=== PATIENT | female | born 1980 | race Caucasian/White ===

== ENCOUNTER 2019-11-02 08:49 | Emergency (ER) | payer OTHER, SELFPAY ==
[2019-11-02 09:10] VITALS: BP 151/89; PULSE 88; RESP 16; TEMP 36.5; O2SAT 98
--- NOTE | 2019-11-02 09:31 | ED.GENADULT ---
HPI - General Adult General Chief complaint: Wound/Laceration Stated complaint: Puncture wound on index finger Time Seen by Provider: 11/02/19 09:31 Source: patient Mode of arrival: ambulatory Limitations: no limitations History of Present Illness HPI narrative: 39-year-old female patient presents to the [facility] with complaints of a puncture wound to her left index finger. Patient states that happened last night. Patient states that she was using a wooden skewer to make chocolate covered strawberries and punctured her index finger with a wooden secure. Patient states that she was able to pull it out and that the score was intact when she did. Patient states that she did take some ibuprofen last night for pain but has not taken anything today. Patient states that the pain is worse today than it was yesterday. Patient states she is up-to-date on her tetanus and got her tetanus about a year ago from her primary doctor. Patient denies any fevers, chills. Patient states that it is painful to try and bend the finger. Patient states when the incident occurred yesterday she did rinse it off with water but did not scrub it and did not put any antibiotic ointment on it. Related Data Allergies Allergy/AdvReac Type Severity Reaction Status Date / Time No Known Allergies Allergy Unverified 01/17/19 11:59 Review of Systems Review of Systems: Narrative: CONSTITUTIONAL: Denies fever, chills, or sweats. EYES: Denies visual changes, redness, or discharge. ENT: Denies rhinorrhea, congestion, sore throat, or otalgia. CARDIOVASCULAR: Denies chest pain, palpitations, or edema. RESPIRATORY: Denies cough or dyspnea. GASTROINTESTINAL: Denies abdominal pain, nausea, vomiting, or diarrhea. GENITOURINARY: Denies dysuria or hematuria. SKIN: Denies rash or itching. Positive wound to left index finger MUSCULOSKELETAL: Denies back pain, joint pain, or myalgia. NEUROLOGIC: Denies headache, numbness, or weakness. PSYCHIATRIC: Denies anxiety or depression. [facility] Family History Family History Father Family history of diabetes mellitus in first degree relative Grandparent Family history of lung cancer Family history of malignant neoplasm of ovary Social History Social History Smoking status: Never smoker Comments At the time of my signature I agree with nursing past medical history, surgical, social, and family history. There is no relevant family history pertinent to the presenting complaint. Exam Narrative: Exam Narrative: GENERAL: Well-appearing, well-nourished, and in no acute distress. HEAD: Normocephalic, atraumatic. EYES: PERRLA and EOMI. ENT: Nares clear, no rhinorrhea or epistaxis. Mucous membranes moist. NECK: Supple. No lymphadenopathy CHEST: Clear to auscultation. No respiratory distress. HEART: Regular rate and rhythm. No murmur heard. Normal peripheral pulses. ABDOMEN: Soft, nontender, nondistended, normal active bowel sounds. EXTREMITIES: Normal range of motion. No edema. SKIN: Warm, dry, no rash. Patient has small puncture wound noted to the left index finger on the palm side right over the PIP joint. There is slight swelling noted at the base of the left index finger. There is no surrounding erythema, warmth. No discharge coming from the area. Patient states she is able to bend the finger but it is painful. NEURO: No focal deficits. Alert and oriented x3. Course Vital Signs Vital signs: Vital Signs Temperature 36.5 C 11/02/19 09:10 Pulse Rate 88 11/02/19 09:10 Respiratory Rate 16 11/02/19 09:10 Blood Pressure 151/89 H 11/02/19 09:10 Pulse Oximetry 98 11/02/19 09:10 Temperature 36.5 C 11/02/19 09:10 Pulse Rate 88 11/02/19 09:10 Respiratory Rate 16 11/02/19 09:10 Blood Pressure 151/89 H 11/02/19 09:10 Pulse Oximetry 98 11/02/19 09:10 Vital signs reviewed. The patient has been
== END 2019-11-02 09:51 | disposition home or self-care (01) ==
PROVIDERS: Emergency Provider Nurse Practitioner Family; PCP Registered Nurse
DX: S61.231A Puncture wound without foreign body of left index finger without damage to nail, initial encounter (principal); W27.4XXA Contact with kitchen utensil, initial encounter
CPT/HCPCS: 99213; G0463

== ENCOUNTER 2020-05-20 23:10 | Emergency (ER) | payer OTHER, SELFPAY ==
--- NOTE | ~2020-05-20 | XR_ITS ---
EXAMINATION: XR knee LT 3V DATE: 05/21/2020 01:04 INDICATION: Left knee pain TECHNIQUE: Three views of the left knee were obtained. COMPARISON: None. FINDINGS: Alignment is normal. No fracture or osteochondral lesion. Joint spaces are normal with no e rosions. No joint effusion/synovitis. Soft tissues are unremarkable. IMPRESSION: 1. No acute osseous abnormality. Reviewed, dictated and finalized at location [facility].
[2020-05-21 00:15] VITALS: BP 119/74; PULSE 93; RESP 17; TEMP 36.5; O2SAT 95
--- NOTE | 2020-05-21 01:41 | ED.EXTPRO ---
HPI - Extremity Problem General Chief complaint: Extremity Problem,Nontraumatic Stated complaint: left knee pain with swelling Time Seen by Provider: 05/21/20 00:52 Source: patient Mode of arrival: ambulatory Limitations: no limitations History of Present Illness HPI Narrative: This patient is a 40 year old female who presents for evaluation left knee pain.She reports she developed left medial knee pain 4 days ago. She states initially her pain appeared to be improving. Over the past couple of days, she is having worsening pain . Her pain is worse with bearing weight. She has not taken anything for pain in 2 days. She denies any trauma but she states she is on her feet constantly for work. She has no leg swelling, calf pain or sob. Related Data Allergies Allergy/AdvReac Type Severity Reaction Status Date / Time No Known Allergies Allergy Unverified 05/21/20 00:14 Review of Systems Review of Systems: All systems reviewed & are unremarkable except as noted in HPI and below PMFSH Past Medical History Medical History (Updated 05/21/20 @ 03:08 by Aurea Landa MD) Patient denies medical problems Surgical History Surgical History (Updated 05/21/20 @ 03:05 by Aurea Landa MD) Hx of cholecystectomy Social History Social History Smoking status: Never smoker Gender identity (if verbalized by the patient): Female Exam Const: General: alert Nutritional Appearance: obese Orientation/consciousness: patient oriented x3 HENMT: Head: normocephalic and atraumatic Face and sinus: face symmetric Eyes: EOM: EOMs intact bilaterally Skin: General skin exam: normal color Rashes: no rashes Neuro: General: patient oriented x3 and moves all extremities Extrem: General: full ROM and capillary refill normal Left lower extremity: knee Details: tenderness (medial anterior knee) and other (no increased warmth, no erythema, no calf tenderness) Course Vital Signs Vital signs: Vital Signs Temperature 97.7 F 05/21/20 00:15 Pulse Rate 93 05/21/20 00:15 Respiratory Rate 17 05/21/20 00:15 Blood Pressure 119/74 05/21/20 00:15 Pulse Oximetry 95 05/21/20 00:15 Temperature 97.7 F 05/21/20 00:15 Pulse Rate 77 05/21/20 03:15 Respiratory Rate 17 05/21/20 03:15 Blood Pressure 119/74 05/21/20 00:15 Pulse Oximetry 98 05/21/20 03:15 MDM - Extremity (Nontraumatic) Imaging Data Attestation: I personally reviewed and interpreted this imaging study as follows: My impression: left knee xray - no fracture Discharge Plan Discharge Clinical Impression: Arthralgia of knee, left Patient Disposition: Home, Self-Care Condition: Stable Instructions: Knee Pain (ED), Arthralgia (ED) Additional Instructions: Today you were evaluated for knee pain that is likely due to inflammation. Wear a knee brace for comfort and take NSAIDs for your pain. Prescriptions: New naproxen 500 mg tablet 500 mg PO BID PRN (Reason: pain) Qty: 14 RF: 0 tramadol 50 mg tablet 50 mg PO Q6H PRN (Reason: pain) Qty: 6 RF: 0 Follow-up/Referrals: Camryn,MICHAEL Ahn [Primary Care Provider] - Stand Alone Forms: Work/School Release IP Discharge Date/Time: 05/21/20 03:15
[2020-05-21] MEDS: KETOROLAC (*BKC) 60 MG/2 ML VIAL IM (02:13)
--- NOTE | 2020-05-21 02:14 | PC.NURSE ---
abigail wrap applied to L knee at this time.
[2020-05-21 03:15] VITALS: PULSE 77; RESP 17; O2SAT 98
== END 2020-05-21 03:15 | disposition home or self-care (01) ==
PROVIDERS: Emergency Provider General Practice; PCP Registered Nurse
DX: M25.562 Pain in left knee (principal)
CPT/HCPCS: 73562; 96372; 99283; J1885

== ENCOUNTER 2020-05-24 15:57 | Observation (INO) | payer OTHER, SELFPAY ==
--- NOTE | ~2020-05-24 | CT_ITS ---
EXAMINATION: CT abdomen pelvis w con DATE: 05/24/2020 18:02 INDICATION: Right lower quadrant abdominal pain TECHNIQUE: Computed tomography (CT) of the abdomen and pelvis was performed with 100 cc Omnipaque 350 intravenous contrast. Automated exposure control and iterative reconstruction technique were employe d. Exam dose: 1285.99 mGy-cm total exam DLP. COMPARISON: 10/07/2019 CT abdomen pelvis FINDINGS: The lung bases are clear of infiltrate or consolidation. Normal heart size. No pericardial or pleural effusion. Status post cholecystectomy. The liver, spleen, pancreas, and adrenal glands and kidneys are unremark able. No bile duct or pancreatic duct dilatation. Normal caliber of the abdominal aorta. No intraperitoneal or retroperitoneal or pelvic mass lesion or adenopathy or ascites. The uterus is absent. The urinary bladder and ovaries are unremarkable. Normal appendix. No bowel obstruction, bowel wall thickening, pneumatosis or intraperitoneal free air . Normal caliber of the abdominal aorta. No intraperitoneal or retroperitoneal or pelvic mass lesion or adenopathy or ascites. There is severe degenerative disc disease at L5-S1. 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 IMPRESSION: Status post cholecystectomy Status post hysterectomy Normal appendix Reviewed, dictated and finalized at [facility]. Reviewed, dictated and finalized at location [facility].
[2020-05-24 16:10] VITALS: BP 164/93; PULSE 101; RESP 18; TEMP 36.6; O2SAT 100
[2020-05-24 16:23] LABS: Basophils Absolute Auto 0.1 K/mm3 (0.0-0.1); Basophils Percent Auto 0.4 % (0.2-1.2); Eosinophils Absolute Auto 0.2 K/mm3 (0-0.3); Eosinophils Percent Auto 0.9 % (0-4.4); Hematocrit 42.6 % (37.0-47.0); Hemoglobin 13.8 g/dL (12.0-15.0); Immature Granulocyte Percent A 0.5 % (0-0.5); Lymphocytes Absolute Auto 2.51 K/mm3 (0.9-3.2); Lymphocytes Percent Auto 13.5 % (18.3-44.2); Mean Corpuscular HGB Conc 32.4 g/dl (32-36); Mean Corpuscular Hemoglobin 31.1 pg (26-34); Mean Corpuscular Volume 95.9 fl (80-100); Mean Platelet Volume 9.3 fl (7.4-10.4); Monocytes Absolute Auto 1.6 K/mm3 (0.1-0.6); Monocytes Percent Auto 8.3 % (2.6-8.5); Neutrophils Absolute Auto 14.2 K/mm3 (1.3-6.7); Neutrophils Percent Auto 76.4 % (45.5-73.1); Platelet Count Result 274 k/mm3 (150-375); Red Blood Count 4.44 M/mm3 (4.2-5.4); Red Cell Distribution Width 14.4 % (11.5-14.5); White Blood Count 18.6 K/mm3 (4.5-10.0)
[2020-05-24 16:35] LABS: Alanine Aminotransferase 24 U/L (4-35); Albumin Level 4.1 g/dL (3.5-5.1); Alkaline Phosphatase 68 U/L (38-126); Anion Gap 6 mmol/L (8-16); Aspartate Amino Transferase 26 U/L (14-36); Bilirubin,Total 0.4 mg/dL (0.2-1.3); Blood Urea Nitrogen 9 mg/dL (7-17); Calcium 9.4 mg/dL (8.4-10.2); Carbon Dioxide 28 mmol/L (22-30); Chloride 102 mmol/L (98-107); Estimated CRCL calculation 93 ml/min; Estimated Glomerular Filt Rate > 60; Glucose 104 mg/dL (65-105); Lipase 124 U/L (23-300); Sodium 136 mmol/L (137-145)
--- NOTE | 2020-05-24 16:42 | ED.ABDPAIN ---
HPI - Abdominal Pain General Chief Complaint: Abdominal Pain Stated Complaint: abdominal pain Time Seen by Provider: 05/24/20 16:42 Source: patient Mode of arrival: ambulatory Limitations: no limitations History of Present Illness HPI narrative: Patient is a 40-year-old female with a history of partial hysterectomy, section, cholecystectomy who presents for evaluation of diffuse abdominal pain. Patient reports pain over the past day which is constant in nature, sharp in nature throughout the abdomen. Patient states pain originates in the middle of the abdomen. Patient had one associated episode of nausea with emesis today. No fever or chills. No diarrhea, patient does report some constipation and straining with bowel movement. No recent food indiscretions. Related Data Allergies Allergy/AdvReac Type Severity Reaction Status Date / Time No Known Allergies Allergy Unverified 05/21/20 00:14 Review of Systems Review of Systems: Narrative: CONSTITUTIONAL: Denies fever CARDIOVASCULAR: Denies chest pain RESPIRATORY: Denies cough or dyspnea. GASTROINTESTINAL: Reports abdominal pain, nausea, vomiting SKIN: Denies rash MUSCULOSKELETAL: Denies back pain NEUROLOGIC: Denies headache PMFSH Past Medical History Medical History (Updated 05/24/20 @ 19:45 by Joana Flores MD) Patient denies medical problems Surgical History Surgical History H/O section H/O: hysterectomy Hx of cholecystectomy Social History Social History Smoking status: Never smoker Gender identity (if verbalized by the patient): Female Exam Narrative: Exam Narrative: GENERAL: Awake, alert, conversant HEAD: Normocephalic, atraumatic. EYES: PERRLA and EOMI. ENT: Nares clear, no rhinorrhea or epistaxis. Mucous membranes moist. NECK: Supple. CHEST: No respiratory distress, breathing even and non labored HEART: Regular rate, sinus rhythm ABDOMEN:Non distended, tender to palpation throughout abdomen, periumbilical abdominal pain, focal left upper quadrant, right lower quadrant, left lower quadrant, positive guarding, nonrigid EXTREMITIES: Normal range of motion. No edema. SKIN: Warm, dry, no rash. NEURO:No focal deficits. Alert and oriented x3 Course Vital Signs Vital signs: Vital Signs Temperature 36.6 C 05/24/20 16:10 Pulse Rate 101 H 05/24/20 16:10 Respiratory Rate 18 05/24/20 16:10 Blood Pressure 164/93 H 05/24/20 16:10 Pulse Oximetry 100 05/24/20 16:10 Temperature 36.6 C 05/24/20 16:10 Pulse Rate 93 05/24/20 19:37 Respiratory Rate 16 05/24/20 19:37 Blood Pressure 154/77 H 05/24/20 19:37 Pulse Oximetry 99 05/24/20 19:37 MDM - Abdominal Pain MDM Narrative Medical decision making narrative: Patient presented for evaluation of abdominal pain. At the time of assessment, ABCs are intact, patient is mildly tachycardic, the time of my assessment this has resolved. Laboratory results are notable for leukocytosis that is quite prounounced. Pt will meet SIRS criteria, and will add lactic and blood cx for her. No transaminitis. No electrolyte derangement or acute kidney injury. No elevation in lipase. Urine is not consistent with a urinary tract infection. CT scan does not really show any acute intra-abdominal findings. Patient was reassessed and continues to have severe pain with guarding on exam. SHe is not a frequent flier for intractable abd pain, nausea or vomiting based on chart review. I do not feel that patient has any surgical pathology especially based on imaging study. Shared decision making and patient offered discharge home versus to be observed here overnight to be kept n.p.o. with supportive therapy for pain with repeat serial abdominal exams and additional imaging if necessary. At this time, unknown etiology of her pain. Spoke with hospitalist regarding patient, we will do
[2020-05-24] MEDS: SODIUM CHLORIDE 0.9% IV 1,000 ML 999 ML IV CONT (17:41)
[2020-05-24] MEDS: ONDANSETRON INJ 4 MG/2 ML VIAL IV PUSH (17:43)
[2020-05-24] MEDS: MORPHINE SULFATE 4 MG/ML INJ IV PUSH (17:43)
[2020-05-24 18:00] LABS: Add Urine Microscopic? YES; Amorphous Sediment Urine Few; Appearance Urine Cloudy (Clear); Bacteria Urine Trace /hpf; Bilirubin Urine Negative (Negative); Blood Urine Negative (Negative); Color Urine Yellow (Yellow); Glucose Urine UA Negative (Negative); Ketones Urine Negative (Negative); Leukocyte Esterase Ur Negative LEU/UL (Negative); Mucus Urine Rare /lpf; Nitrate Urine Negative (Negative); Protein Urine Negative (Negative); RBC Urine 0-2 /hpf (0-2); Specific Grav Ur 1.015 (1.001-1.035); Squamous Epithelial Cell Urine Many /hpf (Few); Urobilinogen Urine Negative mg/dL (<2.0); WBC Urine 0-3 /hpf
[2020-05-24 19:06] VITALS: BP 135/83; PULSE 94; RESP 20; O2SAT 100
[2020-05-24 19:37] VITALS: BP 154/77; PULSE 93; RESP 16; O2SAT 99
--- NOTE | 2020-05-24 19:41 | PC.NURSE ---
nurse before me mistakenly dispoed and departed pt, registration put patient back on board.
[2020-05-24 20:03] VITALS: BP 149/78; PULSE 90; RESP 18; O2SAT 99
[2020-05-24 20:30] VITALS: BP 143/73; PULSE 76; RESP 20; TEMP 36.2; O2SAT 97; BMI 36.1
[2020-05-24 20:30] LABS: Lactic Acid Reflex 1.5 mmol/L (0.7-2.1)
--- NOTE | 2020-05-24 20:54 | ADMGEN ---
This patient, Genna Gonzalez, was admitted to [facility] Surg Room 302-01. Patient/family oriented to hospital policies and general routines including ID bracelet, bed and alarms, visiting hours, pain management, procedures, bathroom and other care routines, personal items, smoking policy, room service/diet, and visiting hours. Valuables list has been completed. Information on how to activate the Rapid Response Team has been discussed. Patient/Family are encouraged to report perceived risks to care and to ask questions if they do not understand what they are told or what they should do.
[2020-05-24] MEDS: SODIUM CHLORIDE 0.9% IV 1,000 ML 125 ML IV CONT (21:29)
[2020-05-24] MEDS: FAMOTIDINE 20 MG/2 ML VIAL IV PUSH (21:30)
[2020-05-24 22:00] VITALS: BP 141/81; PULSE 71; RESP 20; TEMP 36.2; O2SAT 98
[2020-05-24] MEDS: DICYCLOMINE HCL INJ 20 MG/2 ML VIAL IM (22:24)
--- NOTE | 2020-05-25 04:11 | PM.IMHP ---
H&P: HPI History of Present Illness Date/Time: 05/25/20 06:20 Chief complaint: Abdominal pain Narrative: Genna Gonzalez is a 40 year old female with a past medical history of prior cholecystectomy, hysterectomy without oophorectomy, and who presented to the ER for diffuse abdominal pain.The patient reports that on Monday she noticed some lower abdominal pain. She does have a history of ovarian cysts and thought that the pain may be related to that. However on Monday the pain was more diffuse and was more severe than her usual ovarian cyst type pain. The pain also moved from the lower abdomen and extended across the right side for abdomen and periumbilical region. The pain was constant and pressure-like. It was a 10/10 at its worst is currently a 7/10 in intensity. The pain is worse with palpation of her abdomen. She has been having normal bowel movements and denies any hematochezia, melena or mucousy stools. She has noticed increased gas. She reports that her abdomen feels tight. She reported that yesterday her pain was worse with eating. She has no desire to eat currently. She has not had any fevers or chills. She has never had pain like this before. She denies any recent ill contacts. She has had prior ER visits back in 2014 also for lower abdominal pain and leukocytosis each time she was found to have an ovarian cyst. However, today's imaging does not mention the patient's ovaries. The patient denies any vaginal discharge or odor. Review of Systems Review of Systems: Narrative: 12 systems were reviewed with pertinent positives and negatives per HPI. Except as documented in the HPI, all other systems were reviewed and are negative. [facility] Past Medical History Medical History (Updated 05/25/20 @ 08:21 by Janay Eng DO) Essential hypertension Obesity Ovarian cyst Surgical History Surgical History (Updated 05/25/20 @ 08:06 by Janay Eng DO) H/O section x3 H/O: hysterectomy without oophorectomy (hysterectomy performed due to dysfunctional uterine bleeding) History of tubal ligation Hx of cholecystectomy 2014 Family History Family History (Updated 05/25/20 @ 04:17 by Janay Eng DO) Father Diabetes mellitus Grandparent Lung cancer Ovarian cancer Social History Social History (Updated 05/25/20 @ 08:14 by CELINA Weaver Social History: the patient lives at home with her 3 children ages 15 16 and 17. She has 1 daughter and 2 sons. She lost 1 child at 19 weeks gestation. Two of her 3 children were premature. The patient has smoked 1 pack of cigarettes per day for 24 years. She started smoking at age 16. She drinks 3 or 4 alcoholic beverages 3 times a week. She smokes marijuana every couple of days. Smoking packs per day: 1 Smoking cigarettes per day: 20.0 Years smoked: 24 Smoking pack-years: 24.00 Smoking status: Current every day smoker Tobacco type: cigarettes Second hand tobacco smoke exposure: No Alcohol intake: current Drinks per week: 8 Substance use: current Substance use type: marijuana Gender identity (if verbalized by the patient): Female Spiritual care concerns: No Meds Home Medications and Allergies Home Medications Medication Instructions Recorded Confirmed Type No Home Medications 05/24/20 05/24/20 History Allergies Allergy/AdvReac Type Severity Reaction Status Date / Time No Known Allergies Allergy Unverified 05/21/20 00:14 Vital Signs Vital Signs - 24 hr 05/24/20 16:10 05/24/20 19:06 05/24/20 19:37 Temperature 97.8 F Pulse Rate 101 H 94 93 Respiratory Rate 18 20 16 Blood Pressure 164/93 H 135/83 154/77 H Pulse Oximetry 100 100 99 05/24/20 20:03 05/24/20 20:30 05/24/20 22:00 Temperature 97.2 F L 97.1 F L Pulse Rate 90 76 71 Respiratory Rate 18 20 20 Blood Pressure 149/78 H 143/73 H 141/81 H Pulse Oximetry 99 97 98 Exam Narrative: Exam Narrative: [place]
[2020-05-25] MEDS: DICYCLOMINE HCL INJ 20 MG/2 ML VIAL IM (05:57)
[2020-05-25 06:00] VITALS: BP 133/87; PULSE 57; RESP 20; TEMP 36.2; O2SAT 97
[2020-05-25] MEDS: SODIUM CHLORIDE 0.9% IV 1,000 ML 125 ML IV CONT (07:17)
[2020-05-25 08:24] LABS: Hematocrit 36.9 % (37.0-47.0); Hemoglobin 11.8 g/dL (12.0-15.0); Mean Corpuscular Hemoglobin 31.4 pg (26-34); Mean Corpuscular Volume 98.1 fl (80-100); Mean Platelet Volume 9.5 fl (7.4-10.4); Platelet Count Result 220 k/mm3 (150-375); Red Blood Count 3.76 M/mm3 (4.2-5.4); Red Cell Distribution Width 14.4 % (11.5-14.5); White Blood Count 12.6 K/mm3 (4.5-10.0)
[2020-05-25] MEDS: ENOXAPARIN 40 MG/0.4 ML SYRINGE SUB-Q (08:38)
[2020-05-25] MEDS: FAMOTIDINE 20 MG/2 ML VIAL IV PUSH (08:39)
[2020-05-25] MEDS: NICOTINE (*PBKC) 21 MG PATCH 1 PATCH TRANSDERM (08:40)
[2020-05-25 08:49] LABS: Alanine Aminotransferase 16 U/L (4-35); Albumin Level 3.3 g/dL (3.5-5.1); Alkaline Phosphatase 58 U/L (38-126); Anion Gap 4 mmol/L (8-16); Aspartate Amino Transferase 20 U/L (14-36); Bilirubin,Total 0.6 mg/dL (0.2-1.3); Blood Urea Nitrogen 7 mg/dL (7-17); Calcium 7.9 mg/dL (8.4-10.2); Carbon Dioxide 27 mmol/L (22-30); Chloride 105 mmol/L (98-107); Estimated CRCL calculation 108 ml/min; Estimated Glomerular Filt Rate > 60; Glucose 98 mg/dL (65-105); Potassium 3.6 mmol/L (3.4-5.0); Sodium 136 mmol/L (137-145)
--- NOTE | 2020-05-25 10:37 | PM.DS ---
DS: Admitting Diagnosis Admitting Diagnosis Admitting Diagnosis: Abdominal pain DS: Discharge Diagnosis Discharge Diagnosis (1) Abdominal pain: Qualifiers: Abdominal location: periumbilical Qualified Code(s): R10.33 - Periumbilical pain Code(s): R10.9 - Unspecified abdominal pain Status: Acute Assessment and Plan: uncertain etiology. The patient reports that her abdominal pain persists. She has Pepcid IV b.i.d., Zofran, IV Tylenol and dicyclomine as needed. The patient's abdomen is tender as discussed under exam but otherwise soft with no other associated symptoms. Repeat labs were ordered at 4:15 a.m. and at the time I was finishing this dictation after 8:00 a.m. labs have not yet been resulted. Given leukocytosis patient could possibly have an infection but no source of infection is noted on CT. will continue patient with NPO diet except for ice chips given her persistent pain. patient clinically symptoms are improved CT scan did not show any sign of infection her white counts are trending patient is feeling much comfortable will going discharge the patient to follow-up with primary care doctor (2) Leukocytosis: Qualifiers: Leukocytosis type: other Qualified Code(s): D72.828 - Other elevated white blood cell count Code(s): D72.829 - Elevated white blood cell count, unspecified Status: Acute Assessment and Plan: No definitive source of infection has been identified. Will hold off on antibiotic therapy at this time. (3) Tobacco abuse disorder: Code(s): Z72.0 - Tobacco use Status: Acute Assessment and Plan: The patient is not interested in tobacco cessation education. A nicotine patch has been ordered. DS: Summary Hospital Course Reason for hospitalization: Chief complaint: Abdominal pain Narrative: Genna Gonzalez is a 40 year old female with a past medical history of prior cholecystectomy, hysterectomy without oophorectomy, and who presented to the ER for diffuse abdominal pain.The patient reports that on Monday she noticed some lower abdominal pain. She does have a history of ovarian cysts and thought that the pain may be related to that. However on Monday the pain was more diffuse and was more severe than her usual ovarian cyst type pain. The pain also moved from the lower abdomen and extended across the right side for abdomen and periumbilical region. The pain was constant and pressure-like. It was a 10/10 at its worst is currently a 7/10 in intensity. The pain is worse with palpation of her abdomen. She has been having normal bowel movements and denies any hematochezia, melena or mucousy stools. She has noticed increased gas. She reports that her abdomen feels tight. She reported that yesterday her pain was worse with eating. She has no desire to eat currently. She has not had any fevers or chills. She has never had pain like this before. She denies any recent ill contacts. She has had prior ER visits back in 2014 also for lower abdominal pain and leukocytosis each time she was found to have an ovarian cyst. However, today's imaging does not mention the patient's ovaries. The patient denies any vaginal discharge or odor. Hospital Course: Patient pain has improved was able to jump three times without any pain, her work up so far diagnostic, patient does not want to stay one more day for obervation in the hospital, will discharge home today and with instruction that if her pain redevelop, to go to nearest ER. Patient to follow up with her primary care provider as soon as possible. Status at Discharge Functional status at discharge: independent ambulation Overall status at discharge: patient is back to baseline Time Spent with Patient Time attestation: Total time spent providing and/or coordinating discharge services: Time spent: Less than 30 minutes Exam Const: General: comfortable and no ac
[2020-05-25 14:00] VITALS: BP 136/87; PULSE 73; RESP 14; TEMP 36.4; O2SAT 97
== END 2020-05-25 13:50 | disposition home or self-care (01) ==
LOC: ANHED 19:44 → ANH3MEDSUR 21:44
PROVIDERS: Family Medicine; Admitting Provider Internal Medicine; Emergency Provider Emergency Medicine; PCP Registered Nurse; Visit Provider Family Medicine
DX: R10.9 Unspecified abdominal pain (principal); D72.829 Elevated white blood cell count, unspecified; F17.210 Nicotine dependence, cigarettes, uncomplicated; F12.90 Cannabis use, unspecified, uncomplicated
CPT/HCPCS: 36415; 74177; 80053; 81001; 83605; 83690; 85025; 85027; 87040; 96361; 96365; 96372; 96375; 96376; 99285; A9270; G0378; G0379; J0131; J0500; J1650; J2270; J2405; J7030; Q9967

== ENCOUNTER 2021-03-14 11:41 | Emergency (ER) | payer OTHER, SELFPAY ==
[2021-03-14 11:50] VITALS: BP 145/94; PULSE 93; RESP 16; TEMP 37; O2SAT 99
[2021-03-14 12:01] VITALS: BP 145/94; PULSE 93; RESP 16; TEMP 37; O2SAT 99
--- NOTE | 2021-03-14 12:02 | ED.GENADULT ---
HPI - General Adult General Chief complaint: Ear Stated complaint: Ear Pain Time Seen by Provider: 03/14/21 11:43 Source: patient Mode of arrival: ambulatory Limitations: no limitations History of Present Illness HPI narrative: Patient presents for evaluation of bilateral ear pain. States that pain has been present in the right ear for about 2 weeks. Pain has progressively worsened. She now feels like her right ear is clogged with some hearing loss. She has a history of recurrent ear infections and current symptoms are consistent with those previously experienced with ear infections. She has been seen by ENT in the past for recurrent ear infections. Although she has not required treatment in the last year or so. She reports a clear crusted drainage from both ear canals. Denies any tinnitus, sore throat, fever, chills. Related Data Home Medications Medication Instructions Recorded Confirmed ibuprofen 600 mg PO DIRECTED 03/14/21 03/14/21 tramadol 50 mg PO DIRECTED 03/14/21 03/14/21 Allergies Allergy/AdvReac Type Severity Reaction Status Date / Time No Known Allergies Allergy Verified 03/14/21 12:09 Review of Systems Review of Systems: Narrative: CONSTITUTIONAL: Denies fever, chills, or sweats. EYES: Denies visual changes, redness, or discharge. ENT: Reports bilateral ear pain, decreased hearing in the right ear and crusted drainage in both ears. Denies rhinorrhea, congestion, sore throat. CARDIOVASCULAR: Denies chest pain, palpitations, or edema. RESPIRATORY: Denies cough or dyspnea. GASTROINTESTINAL: Denies abdominal pain, nausea, vomiting, or diarrhea. GENITOURINARY: Denies dysuria or hematuria. SKIN: Denies rash or itching. MUSCULOSKELETAL: Denies back pain, joint pain, or myalgia. NEUROLOGIC: Denies headache, numbness, dizziness, or weakness. PSYCHIATRIC: Denies anxiety or depression. [facility] Past Medical History Medical History Hypertension Surgical History Surgical History History of delivery History of cholecystectomy History of hysterectomy Family History Family History Father Heart disease Mother CHF (congestive heart failure) COPD (chronic obstructive pulmonary disease) Social History Social History Smoking packs per day: 0.5 Smoking cigarettes per day: 10.0 Smoking status: Current every day smoker Tobacco type: cigarettes Alcohol intake: current Alcohol use details: social Substance use: current Substance use type: marijuana Additional living arrangements comments: Lives with boyfriend Gender identity (if verbalized by the patient): Female Spiritual care concerns: No Exam Narrative: Exam Narrative: GENERAL: Well-appearing, well-nourished, and in no acute distress. HEAD: Normocephalic, atraumatic. EYES: PERRLA and EOMI. ENT: Nares clear, no rhinorrhea or epistaxis. Mucous membranes moist. Oropharynx without tonsillar hypertrophy exudate or other lesions. Bilateral TMs erythema and clouding with middle ear fluid present. There is dried serous fluid noted in both ear canals NECK: Supple. No adenopathy or masses. No carotid bruits or JVD CHEST: Clear to auscultation. No respiratory distress. No wheezes rales or rhonchi HEART: Regular rate and rhythm. No murmur heard. Normal peripheral pulses. ABDOMEN: Soft, nontender, nondistended, normal active bowel sounds. EXTREMITIES: Normal range of motion. No edema. SKIN: Warm, dry, no rash. NEURO: No focal deficits. Alert and oriented x3. PSYCH: Normal mood and affect. Course Course Emergency Course: This is a 40-year-old female who presents with complaints of bilateral ear pain. She has history of recurrent ear infection and has required otic ear preparation
== END 2021-03-14 12:17 | disposition home or self-care (01) ==
PROVIDERS: Emergency Provider Nurse Practitioner
DX: H66.93 Otitis media, unspecified, bilateral (principal); H60.393 Other infective otitis externa, bilateral
CPT/HCPCS: 99203; G0463

== ENCOUNTER 2021-12-05 11:33 | Emergency (ER) | payer OTHER, SELFPAY ==
--- NOTE | ~2021-12-05 | XR_ITS ---
XR hand LT min 3V 12/05/2021 12:05 INDICATION: Left hand pain PROCEDURE: 3 views left hand COMPARISON: 08/08/2007 and 08/25/2013 FINDINGS: Fracture, dislocation or subluxation is not identified. The soft tissues appear within norm al limits. No foreign bodies are identified. IMPRESSION: 1: NO ACUTE BONE OR JOINT ABNORMALITY IDENTIFIED. Reviewed, dictated and finalized at location A.
--- NOTE | 2021-12-05 11:43 | ED.UPPEXIN ---
HPI - Extremity Injury (Upper) General Chief Complaint: Extremity Injury, Upper Stated Complaint: Finger and hand Pain Time Seen by Provider: 12/05/21 11:43 Source: patient Mode of arrival: ambulatory Limitations: no limitations History of Present Illness HPI narrative: 41-year-old female presents with pain to left index finger. Patient reports that yesterday she was putting on shoes at a shoe store and felt shooting pain from her left index finger into her hand. Since then has had swelling, decreased range of motion, pain with movement. Taking [id number] medications to treat pain. All systems reviewed and negative except as noted above. Related Data Home Medications Medication Instructions Recorded Confirmed No Home Medications 12/05/21 12/05/21 Allergies Allergy/AdvReac Type Severity Reaction Status Date / Time No Known Allergies Allergy Verified 12/05/21 12:03 Review of Systems Review of Systems: CONSTITUTIONAL: Denies fever, chills, or sweats. EYES: Denies visual changes, redness, or discharge. ENT: Denies rhinorrhea, congestion, sore throat, or otalgia. CARDIOVASCULAR: Denies chest pain, palpitations, or edema. RESPIRATORY: Denies cough or dyspnea. GASTROINTESTINAL: Denies abdominal pain, nausea, vomiting, or diarrhea. GENITOURINARY: Denies dysuria or hematuria. SKIN: Denies rash or itching. MUSCULOSKELETAL: Denies back pain, joint pain, or myalgia. Pain to left index finger. NEUROLOGIC: Denies headache, numbness, or weakness. PSYCHIATRIC: Denies anxiety or depression. All other systems reviewed are negative, except as documented in HPI. [facility] Past Medical History Medical History Hypertension Surgical History Surgical History History of delivery History of cholecystectomy History of hysterectomy Family History Family History Father Heart disease Mother CHF (congestive heart failure) COPD (chronic obstructive pulmonary disease) Social History Social History (System 08/19/21 @ 08:40 by Cary Medina) Social History: the patient lives at home with her 3 children ages 15 16 and 17. She has 1 daughter and 2 sons. She lost 1 child at 19 weeks gestation. Two of her 3 children were premature. The patient has smoked 1 pack of cigarettes per day for 24 years. She started smoking at age 16. She drinks 3 or 4 alcoholic beverages 3 times a week. She smokes marijuana every couple of days. Smoking packs per day: 1 Smoking cigarettes per day: 20.0 Years smoked: 24 Smoking pack-years: 24.00 Smoking status: Current every day smoker Tobacco type: cigarettes Second hand tobacco smoke exposure: No Alcohol intake: current Drinks per week: 8 Alcohol use details: social Substance use: current Substance use type: marijuana Additional living arrangements comments: Lives with boyfriend Gender identity (if verbalized by the patient): Female Spiritual care concerns: No Comments At time of signature, agree with nursing past medical, surgical, social and family history. There is no relevant family history pertinent to the presenting complaint. Exam Narrative: GENERAL: This is a well-nourished, well-developed patient, in no apparent distress. HEAD: normocephalic, atraumatic. EYES: PERRL. Sclera clear/white. Vision is grossly intact. EARS: External ears normal. NOSE: External nose normal. NECK: Neck supple, non-tender without lymphadenopathy, masses or thyromegaly. CARDIOVASCULAR: Regular rate RESPIRATORY: Clear to auscultation. SKIN: warm, Dry, intact with no suspicious lesions or rash, good texture and turgor. NEURO: awake, alert, and oriented to person, place and time. There were no obvious focal neurologic abnormalities. EXTREMITIES: Tenderness to proximal aspect left index finge
[2021-12-05 11:47] VITALS: BP 126/89; PULSE 85; RESP 16; TEMP 36.5; O2SAT 98
== END 2021-12-05 12:29 | disposition home or self-care (01) ==
PROVIDERS: Emergency Provider Nurse Practitioner Family; PCP Registered Nurse
DX: S63.611A Unspecified sprain of left index finger, initial encounter (principal); X58.XXXA Exposure to other specified factors, initial encounter; I10 Essential (primary) hypertension; F17.210 Nicotine dependence, cigarettes, uncomplicated
CPT/HCPCS: 29130; 73130; 99213; G0463

== ENCOUNTER 2022-02-03 17:43 | Emergency (ER) | payer OTHER, SELFPAY ==
[2022-02-03] VITALS (14 sets, daily range): BP systolic 118–126; BP diastolic 70–84; PULSE 78–95; RESP 14–23; TEMP 36.8; O2SAT 93–100
--- NOTE | ~2022-02-03 | XR_ITS ---
EXAMINATION: XR chest 2V DATE: 02/03/2022 18:07 INDICATION: Sternal chest tightness. TECHNIQUE: Frontal and lateral views of the chest were obtained. COMPARISON: Chest 2 views 01/17/2019, CT abdomen and pelvis 05/24/2020 FINDINGS: The chest demonstrates clear lungs without pneumonia, pleural effusion, or pneumothorax. Th e heart size is normal. IMPRESSION: 1. No acute cardiopulmonary disease. Reviewed, dictated and finalized at location A.
--- NOTE | 2022-02-03 17:46 | ECG_ITS ---
Measurements Intervals [place] Rate: 90 P: 37 PA: 142 QRS: 28 QRSD: 91 T: 9 QT: 367 QTc: 450 Interpretive Statements SINUS RHYTHM INCOMPLETE RIGHT BUNDLE BRANCH BLOCK BORDERLINE ST-T WAVE ABNORMALITY- INFERIOR LEADS BASELINE ARTIFACT- V4-V6 BORDERLINE ECG Electronically Signed On 02-03-2022 20:01:01 CDT by Jesus Kasper D.O.
--- NOTE | 2022-02-03 18:05 | ED.GENADULT ---
HPI - General Adult General Chief complaint: Chest Pain <BROCK Hancock Last Filed: 02/03/22 23:21> Stated complaint: CP <BROCK Hancock Last Filed: 02/03/22 23:21> Time Seen by Provider: 02/03/22 17:53 <BROCK Hancock Last Filed: 02/03/22 23:21> History of Present Illness HPI narrative: Patient is a 49-year-old healthy female here for evaluation of chest pain today. Patient describes the sensation as a tightness in the center of her chest, and she developed this about 3 hours ago. The pain came on while patient was at rest. The chest pain is since subsided without intervention. Patient states she was feeling unwell this morning, feeling lightheaded and just generally off . She went to the fire station, got an EKG and was told that her blood pressure was high. She left the fire station, went home, developed the chest pain, and decided to come in to be evaluated. Denies history of previous. She did use a THC edible this morning about 1 hour prior to her symptom onset. Denies shortness of breath, leg swelling, calf pain, recent travel, oral contraceptive use, nausea, diaphoresis. No new medications. <Martha Polanco PA-C - Last Filed: 02/03/22 23:21> Related Data Home medications: Home Medications Medication Instructions Recorded Confirmed No Home Medications 12/05/21 12/05/21 <Martha Polanco PA-C - Last Filed: 02/03/22 23:21> Allergies/adverse reactions: Allergies Allergy/AdvReac Type Severity Reaction Status Date / Time No Known Allergies Allergy Verified 12/05/21 12:03 <BROCK Hancock Last Filed: 02/03/22 23:21> Review of Systems Review of Systems: Gen: Reports lightheadedness. Denies fevers or chills Eyes: Denies eye pain or visual change ENT: Denies congestion Respiratory: Denies shortness of breath or cough CV: Reports chest pain GI: Denies abdominal pain nausea, emesis or diarrhea denies burning, urgency, frequency or hematuria Musculoskeletal: Denies back pain or muscle pain Neuro: Denies numbness, tingling, weakness or focal weakness Skin: Denies rash Except as documented, all other systems reviewed and negative <Martha Polanco PA-C - Last Filed: 02/03/22 23:21> All systems reviewed & are unremarkable except as noted in HPI and below <Martha Polanco PA-C - Last Filed: 02/03/22 23:21> [facility] Past Medical History Medical History: Medical History Essential hypertension Hypertension Obesity Ovarian cyst <Martha Polanco PA-C - Last Filed: 02/03/22 23:21> Surgical History Surgical History: Surgical History H/O section x3 H/O: hysterectomy without oophorectomy (hysterectomy performed due to dysfunctional uterine bleeding) History of delivery History of cholecystectomy History of hysterectomy History of tubal ligation Hx of cholecystectomy 2014 <Martha Polanco PA-C - Last Filed: 02/03/22 23:21> Family History Family History: Family History Father Heart disease Mother CHF (congestive heart failure) COPD (chronic obstructive pulmonary disease) <Martha Polanco PA-C - Last Filed: 02/03/22 23:21> Social History Social History: Social History (System 08/19/21 @ 08:40 by Cary Medina) Social History: the patient lives at home with her 3 children ages 15 16 and 17. She has 1 daughter and 2 sons. She lost 1 child at 19 weeks gestation. Two of her 3 children were premature. The patient has smoked 1 pack of cigarettes per day for 24 years. She started smoking at age 16. She drinks 3 or 4 alcoholic beverages 3 times a week. She smokes marijuana every couple of days. Smoking packs per day: 1 Smoking cigarettes pe
[2022-02-03 18:10] LABS: Basophils Absolute Auto 0.1 K/mm3 (0.0-0.1); Basophils Percent Auto 0.4 % (0.2-1.2); Eosinophils Absolute Auto 0.2 K/mm3 (0-0.3); Eosinophils Percent Auto 1.3 % (0-4.4); Hematocrit 40.1 % (37.0-47.0); Hemoglobin 12.6 g/dL (12.0-15.0); Immature Granulocyte Absolute 0.06 K/mm3 (0.00-0.031); Immature Granulocyte Percent A 0.5 % (0-0.5); Lymphocytes Absolute Auto 2.69 K/mm3 (0.9-3.2); Lymphocytes Percent Auto 21.1 % (18.3-44.2); Mean Corpuscular HGB Conc 31.4 g/dl (32-36); Mean Corpuscular Hemoglobin 30.9 pg (26-34); Mean Corpuscular Volume 98.3 fl (80-100); Mean Platelet Volume 9.2 fl (7.4-10.4); Monocytes Absolute Auto 1.1 K/mm3 (0.1-0.6); Monocytes Percent Auto 8.5 % (2.6-8.5); Neutrophils Absolute Auto 8.7 K/mm3 (1.3-6.7); Neutrophils Percent Auto 68.2 % (45.5-73.1); Platelet Count Result 257 k/mm3 (150-375); Red Blood Count 4.08 M/mm3 (4.2-5.4); Red Cell Distribution Width 13.7 % (11.5-14.5); White Blood Count 12.8 K/mm3 (4.5-10.0)
[2022-02-03 18:19] LABS: Partial Thromboplastin Time 24.7 SECONDS (22.3-36.8); Prothrombin Time 13.2 Seconds (11.1-14.7)
[2022-02-03 18:22] LABS: Alanine Aminotransferase 18 U/L (6-35); Alkaline Phosphatase 59 U/L (38-126); Anion Gap 5 mmol/L (8-16); Aspartate Amino Transferase 24 U/L (14-36); Bilirubin,Total 0.5 mg/dL (0.2-1.3); Blood Urea Nitrogen 9 mg/dL (7-17); Calcium 8.6 mg/dL (8.4-10.2); Carbon Dioxide 29 mmol/L (22-30); Chloride 102 mmol/L (98-107); Estimated Glomerular Filt Rate > 60; Glucose 92 mg/dL (65-110); Lipase 64 U/L (23-300); Potassium 3.6 mmol/L (3.4-5.0); Sodium 136 mmol/L (137-145)
[2022-02-03 18:34] LABS: Troponin I < 0.012 ng/mL (0.000-0.034)
[2022-02-03 18:56] LABS: D Dimer < 0.27 ug/mL (<0.48)
[2022-02-03 21:24] LABS: Troponin I < 0.012 ng/mL (0.000-0.034)
== END 2022-02-03 22:13 | disposition home or self-care (01) ==
PROVIDERS: Physician Assistant; Emergency Provider Emergency Medicine; PCP Registered Nurse
DX: R07.89 Other chest pain (principal); I10 Essential (primary) hypertension; E66.9 Obesity, unspecified; F17.210 Nicotine dependence, cigarettes, uncomplicated; I45.10 Unspecified right bundle-branch block; R94.31 Abnormal electrocardiogram [ECG] [EKG]
CPT/HCPCS: 36415; 71046; 80053; 81025; 83690; 84484; 85025; 85380; 85610; 85730; 93005; 99284

== ENCOUNTER 2022-10-12 15:23 | Emergency (ER) | payer OTHER, SELFPAY ==
--- NOTE | 2022-10-12 15:27 | ED.URI ---
HPI - URI/Sore Throat General Chief Complaint: Upper Respiratory Infection Stated Complaint: cold sx Time Seen by Provider: 10/12/22 15:35 Source: patient Mode of arrival: ambulatory Limitations: no limitations History of Present Illness HPI Narrative: Genna is a 42-year-old female patient presenting to the clinic today with complaints of sore throat, productive cough, congestion, body aches, and chills x2 days. She reports she is feeling better but she is needing a note to return to work. She denies any fever. She denies any known exposure to anybody with COVID, flu, or strep MD elicited complaint: sore throat and nasal congestion Related Data Home Medications Medication Instructions Recorded Confirmed lisinopril 20 mg tablet mg 10/12/22 Allergies Allergy/AdvReac Type Severity Reaction Status Date / Time No Known Allergies Allergy Verified 10/12/22 15:28 Review of Systems Review of Systems: Pertinent positives per HPI. Patient denies any fever, chills, rash, headache, visual changes, dizziness, shortness of breath, chest pain, palpitations, nausea, vomiting, diarrhea, constipation, abdominal pain, or any urinary issues. [facility] Past Medical History Medical History Essential hypertension Hypertension Obesity Ovarian cyst Surgical History Surgical History H/O section x3 H/O: hysterectomy without oophorectomy (hysterectomy performed due to dysfunctional uterine bleeding) History of delivery History of cholecystectomy History of hysterectomy History of tubal ligation Hx of cholecystectomy 2014 Family History Family History Father Heart disease Mother CHF (congestive heart failure) COPD (chronic obstructive pulmonary disease) Father Diabetes mellitus Grandparent Lung cancer Ovarian cancer Social History Social History Social History: the patient lives at home with her 3 children ages 15 16 and 17. She has 1 daughter and 2 sons. She lost 1 child at 19 weeks gestation. Two of her 3 children were premature. The patient has smoked 1 pack of cigarettes per day for 24 years. She started smoking at age 16. She drinks 3 or 4 alcoholic beverages 3 times a week. She smokes marijuana every couple of days. Smoking packs per day: 1 Smoking cigarettes per day: 20.0 Years smoked: 24 Smoking pack-years: 24.00 Smoking status: Current every day smoker Tobacco type: cigarettes Second hand tobacco smoke exposure: No Alcohol intake: current Drinks per week: 8 Alcohol use details: social Substance use: current Substance use type: marijuana Additional living arrangements comments: Lives with boyfriend Gender identity (if verbalized by the patient): Female Spiritual care concerns: No Comments At the time of my signature, I reviewed and agree with the nursing past medical, surgical, social, and family history. There is no relevant family history pertinent to the patient complaint. Exam Narrative: General: Well-developed, obese in no apparent distress Head: Normocephalic, atraumatic Eyes: Pupils equally round and reactive to light bilaterally, EOM intact, sclera and conjunctive clear, no discharge, lids normal Ears: TMs intact and clear, ear canals clear, no drainage, grossly hearing normal. Nose: Nares patent, clear nasal discharge, moderate inflammation, no sinus tenderness. Mouth: Oral pharynx without lesions or masses, good dentition, MMM. Oropharynx red, postnasal drip Neck: Supple, trachea midline, no enlargement of anterior or posterior cervical nodes, no thyroid masses or goiter palpable. Cardio: Regular rate and rhythm, s1 and s2 normal, no murmur appreciated. Resp: Clear to auscultation bilate
[2022-10-12 15:29] VITALS: BP 148/90; PULSE 99; RESP 18; TEMP 37.2; O2SAT 98
== END 2022-10-12 16:14 | disposition home or self-care (01) ==
PROVIDERS: Emergency Provider Nurse Practitioner Family; PCP Registered Nurse
DX: B34.9 Viral infection, unspecified (principal); J06.9 Acute upper respiratory infection, unspecified; Z20.822 Contact with and (suspected) exposure to COVID-19; F17.210 Nicotine dependence, cigarettes, uncomplicated; F12.90 Cannabis use, unspecified, uncomplicated; I10 Essential (primary) hypertension; E66.9 Obesity, unspecified; Z68.32 Body mass index [BMI] 32.0-32.9, adult
CPT/HCPCS: 87081; 87426; 87804; 87880; 99213; C9803; G0463

== ENCOUNTER 2022-11-15 23:46 | Emergency (ER) | payer OTHER, SELFPAY ==
[2022-11-15 23:47] VITALS: BP 173/97; PULSE 103; RESP 17; TEMP 36.7; O2SAT 97
--- NOTE | 2022-11-16 00:46 | ED.EYEPROB ---
HPI - Eye Problem General Chief complaint: Eye Problems Stated complaint: eye pain Time Seen by Provider: 11/16/22 00:34 Source: patient and RN notes reviewed Mode of arrival: ambulatory Limitations: no limitations History of Present Illness HPI Narrative: This is a 42 year old female who presents for evaluation of left eye redness. She developed left eye redness, irritation and discharge yesterday. She has noticed some dried discharge to her eye lids. She denies any trauma and she does not wear contacts. She denies sick contacts. Related Data Home Medications Medication Instructions Recorded Confirmed lisinopril 20 mg tablet mg 10/12/22 Allergies Allergy/AdvReac Type Severity Reaction Status Date / Time No Known Allergies Allergy Verified 10/12/22 15:28 Review of Systems Review of Systems: All systems reviewed & are unremarkable except as noted in HPI and below PMFSH Past Medical History Medical History Essential hypertension Hypertension Obesity Ovarian cyst Surgical History Surgical History H/O section x3 H/O: hysterectomy without oophorectomy (hysterectomy performed due to dysfunctional uterine bleeding) History of delivery History of cholecystectomy History of hysterectomy History of tubal ligation Hx of cholecystectomy 2014 Family History Family History Father Heart disease Mother CHF (congestive heart failure) COPD (chronic obstructive pulmonary disease) Father Diabetes mellitus Grandparent Lung cancer Ovarian cancer Social History Social History Social History: the patient lives at home with her 3 children ages 15 16 and 17. She has 1 daughter and 2 sons. She lost 1 child at 19 weeks gestation. Two of her 3 children were premature. The patient has smoked 1 pack of cigarettes per day for 24 years. She started smoking at age 16. She drinks 3 or 4 alcoholic beverages 3 times a week. She smokes marijuana every couple of days. Smoking packs per day: 1 Smoking cigarettes per day: 20.0 Years smoked: 24 Smoking pack-years: 24.00 Smoking status: Current every day smoker Tobacco type: cigarettes Second hand tobacco smoke exposure: No Alcohol intake: current Drinks per week: 8 Alcohol use details: social Substance use: current Substance use type: marijuana Additional living arrangements comments: Lives with boyfriend Gender identity (if verbalized by the patient): Female Spiritual care concerns: No Exam Const: General: no acute distress and alert Nutritional Appearance: well nourished Orientation/consciousness: patient oriented x3 HENMT: Head: normal to inspection Face and sinus: normal facial exam Eyes: Conjunctivae: conjunctival abnormality left conjunctival injection and discharge Pupils: Equal, round and reactive pupils present EOM: EOMs intact bilaterally Other: negative uptake, no foreign body Resp: Effort & Inspection: normal respiratory effort Skin: General skin exam: normal color Rashes: no rashes Wounds: no wounds Extrem: General: normal to inspection Psych: Mental Status: mental status grossly normal Course Reevaluation(s) Reevaluation #1: Patient will be treated for conjunctivitis. Date: 11/16/22 Time: 00:55 Vital Signs Vital signs: Vital Signs Temperature 98.1 F 11/15/22 23:47 Pulse Rate 103 H 11/15/22 23:47 Respiratory Rate 17 11/15/22 23:47 Blood Pressure 173/97 H 11/15/22 23:47 Pulse Oximetry 97 11/15/22 23:47 Oxygen Delivery Room Air 11/15/22 23:47 Temperature 98.1 F 11/15/22 23:47 Pulse Rate 103 H 11/15/22 23:47 Respiratory Rate 17 11/15/22 23:47 Blood Pressure 173/97 H 11/15/22 23:47 Pulse Oximetry 97 11/15/22 23:47 Oxyg
== END 2022-11-16 01:15 | disposition home or self-care (01) ==
LOC: ANHED 11-16 01:12
PROVIDERS: Emergency Provider General Practice; PCP Registered Nurse
DX: H10.32 Unspecified acute conjunctivitis, left eye (principal); F17.210 Nicotine dependence, cigarettes, uncomplicated; I10 Essential (primary) hypertension
CPT/HCPCS: 99283; A9270

== ENCOUNTER 2022-11-17 19:20 | Emergency (ER) | payer OTHER, SELFPAY ==
[2022-11-17 19:35] VITALS: BP 146/98; PULSE 101; RESP 16; TEMP 37; O2SAT 99
--- NOTE | 2022-11-17 19:35 | ED.EYEPROB ---
HPI - Eye Problem General Chief complaint: Eye Problems Stated complaint: cough Time Seen by Provider: 11/17/22 19:36 Source: patient, RN notes reviewed and old records reviewed Mode of arrival: ambulatory Limitations: no limitations History of Present Illness HPI Narrative: 42-year-old female presents to the [facility] with continued eye redness. Patient does report that she was seen in the ER and discharged early this morning. Use the eyedrops today and she is still not better. Had a work note that and today and needs 1 for tomorrow. Just discharged from the emergency room yesterday with eyedrops, told to follow-up with an eye doctor as well as remove eyelashes. Has not made a follow-up appointment or removed her eyelashes. Denies any blurry vision or change in vision. States the vision she has is current normally wears glasses, not contacts. Onset (ago): day(s) Related Data Home Medications Medication Instructions Recorded Confirmed lisinopril 20 mg tablet mg 10/12/22 Allergies Allergy/AdvReac Type Severity Reaction Status Date / Time No Known Allergies Allergy Verified 11/17/22 19:36 Review of Systems Review of Systems: All systems reviewed & are unremarkable except as noted in HPI and below Constitutional: Constitutional: Reports no additional constitutional complaints Eyes: Eyes: Reports as per HPI, Denies change in vision, Reports eye discharge, Reports irritation, Reports itchy eyes and Denies photophobia ENT: Reports system reviewed and no additional complaints, except as documented Cardiovascular: Cardiovascular: Reports no additional cardiovascular complaints, Denies chest pain and Denies dyspnea Respiratory: Respiratory: Reports no additional respiratory complaints, Denies chest congestion, Denies cough and Denies dyspnea Gastrointestinal: Gastrointestinal: Reports no additional gastrointestinal complaints, Denies abdominal pain, Denies nausea and Denies vomiting Musculoskeletal: Musculoskeletal: Reports no additional musculoskeletal complaints Integumentary/Breasts: Skin/Breast: Reports system reviewed and no additional complaints, except as docu Neurologic: Reports system reviewed and no additional complaints, except as documented Psychiatric: Psychiatric: Reports no additional psychiatric complaints Allergic/Immunologic: Allergic/Immunologic: Reports no additional allergic/immunologic complaints [facility] Past Medical History Medical History Essential hypertension Hypertension Obesity Ovarian cyst Surgical History Surgical History H/O section x3 H/O: hysterectomy without oophorectomy (hysterectomy performed due to dysfunctional uterine bleeding) History of delivery History of cholecystectomy History of hysterectomy History of tubal ligation Hx of cholecystectomy 2014 Family History Family History Father Heart disease Mother CHF (congestive heart failure) COPD (chronic obstructive pulmonary disease) Father Diabetes mellitus Grandparent Lung cancer Ovarian cancer Social History Social History Social History: the patient lives at home with her 3 children ages 15 16 and 17. She has 1 daughter and 2 sons. She lost 1 child at 19 weeks gestation. Two of her 3 children were premature. The patient has smoked 1 pack of cigarettes per day for 24 years. She started smoking at age 16. She drinks 3 or 4 alcoholic beverages 3 times a week. She smokes marijuana every couple of days. Smoking packs per day: 1 Smoking cigarettes per day: 20.0 Years smoked: 24 Smoking pack-years: 24.00 Smoking status: Current every day smoker Tobacco type: cigarettes Second hand tobacco smoke exposure: No Alcohol intake: current Drinks per week:
== END 2022-11-17 19:55 | disposition home or self-care (01) ==
PROVIDERS: Emergency Provider Nurse Practitioner
DX: H10.32 Unspecified acute conjunctivitis, left eye (principal); I10 Essential (primary) hypertension; F17.210 Nicotine dependence, cigarettes, uncomplicated
CPT/HCPCS: 99212; G0463

== ENCOUNTER 2023-09-04 22:59 | Emergency (ER) | payer OTHER, SELFPAY ==
[2023-09-04 23:02] VITALS: BP 142/93; PULSE 94; RESP 18; TEMP 36.1; O2SAT 97
--- NOTE | 2023-09-05 00:41 | PC.NURSE ---
patient stops this RN in the hallway and states they are going to leave because they have not had anyone see them. Patient ambulates to the waiting room without incident.
== END 2023-09-05 00:41 | disposition left against medical advice (07) ==
DX: S61.213A Laceration without foreign body of left middle finger without damage to nail, initial encounter (principal); W26.0XXA Contact with knife, initial encounter
CPT/HCPCS: 99199

== ENCOUNTER 2023-11-29 19:37 | Emergency (ER) | payer SELFPAY ==
--- NOTE | ~2023-11-29 | CT_ITS ---
EXAMINATION: CT abdomen pelvis w con DATE: 11/29/2023 21:20 INDICATION: Left lower and right lower quadrant pain TECHNIQUE: Computed tomography (CT) of the abdomen and pelvis was performed with 100 cc Omnipaque 350 intravenous contrast. The dose-length product was 641.89 mGy-cm. Automated exposure control and iter ative reconstruction technique were employed. COMPARISON: CT dated 05/24/2020. FINDINGS: Lung bases are unremarkable. Heart size normal. No significant pleural or pericardial effus ion. Status post cholecystectomy. Fatty infiltration of the liver. The spleen, pancreas, adrenal glan ds and kidneys are unremarkable. There is a 4.3 cm left adnexal cyst, likely ovarian. Nonobstructive bowel gas pattern. There are air-fluid levels in the small bowel which is nondilated. There is mild t hickening of the sigmoid colon and a few segments of small bowel, suspicious for enterocolitis. No fr ee air or free fluid. No significant vascular abnormality. No lymphadenopathy. Normal appendix. There is suggestion of pelvic relaxation. Moderate lower lumbar spondylosis. Status post cholecystectomy. Status post hysterectomy. IMPRESSION: 1. Segmental wall thickening of the small bowel and colon with air-fluid levels, suspicious for enter ocolitis. 2: Left adnexal cyst measuring 4.3 cm, likely ovarian. Reviewed, dictated and finalized at location A. IMPRESSION: 1. Segmental wall thickening of the small bowel and colon with air-fluid levels , suspicious for enterocolitis. 2: Left adnexal cyst measuring 4.3 cm, likely ovarian.
[2023-11-29 19:55] VITALS: BP 177/111; PULSE 101; RESP 18; TEMP 36.4; O2SAT 100
[2023-11-29 20:28] VITALS: BP 136/92; PULSE 89; RESP 12; O2SAT 99
[2023-11-29 20:42] LABS: Basophils Absolute Auto 0.1 K/mm3 (0.0-0.1); Basophils Percent Auto 0.4 % (0.2-1.2); Eosinophils Absolute Auto 0.1 K/mm3 (0-0.3); Eosinophils Percent Auto 1.1 % (0-4.4); Hematocrit 42.8 % (37.0-47.0); Hemoglobin 13.6 g/dL (12.0-15.0); Immature Granulocyte Absolute 0.04 K/mm3 (0.00-0.031); Immature Granulocyte Percent A 0.3 % (0-0.5); Lymphocytes Absolute Auto 2.36 K/mm3 (0.9-3.2); Lymphocytes Percent Auto 18.4 % (18.3-44.2); Mean Corpuscular HGB Conc 31.8 g/dl (32-36); Mean Corpuscular Hemoglobin 32.3 pg (26-34); Mean Corpuscular Volume 101.7 fl (80-100); Mean Platelet Volume 9.3 fl (7.4-10.4); Monocytes Percent Auto 7.7 % (2.6-8.5); Neutrophils Absolute Auto 9.2 K/mm3 (1.3-6.7); Neutrophils Percent Auto 72.1 % (45.5-73.1); Platelet Count Result 262 k/mm3 (150-375); Red Blood Count 4.21 M/mm3 (4.2-5.4); White Blood Count 12.8 K/mm3 (4.5-10.0)
[2023-11-29 20:43] LABS: Appearance Urine Cloudy (Clear); Bacteria Urine 4+ /hpf; Bilirubin Urine Negative (Negative); Blood Urine Trace (Negative); Color Urine Dark Yellow (Yellow); Glucose Urine UA Negative (Negative); Ketones Urine Trace mg/dL (Negative); Leukocyte Esterase Ur Negative LEU/UL (Negative); Nitrate Urine Negative (Negative); Non Pathogenic Casts 0-2; Protein Urine 1+ mg/dL (Negative); Specific Grav Ur 1.023 (1.001-1.035); Squamous Epithelial Cell Urine Many /hpf (Few); WBC Urine 0-5 /hpf (0-3); pH Urine 6.5 (5.0-9.0)
[2023-11-29 20:46] LABS: Add Urine Microscopic? YES
[2023-11-29 20:52] LABS: Alanine Aminotransferase 17 U/L (6-35); Albumin Level 3.9 g/dL (3.5-5.1); Alkaline Phosphatase 57 U/L (38-126); Anion Gap 4 mmol/L (8-16); Aspartate Amino Transferase 21 U/L (14-36); Bilirubin,Total 0.9 mg/dL (0.2-1.3); Blood Urea Nitrogen 7 mg/dL (7-17); Calcium 9.1 mg/dL (8.4-10.2); Carbon Dioxide 28 mmol/L (22-30); Chloride 104 mmol/L (98-107); Estimated CRCL calculation 98 ml/min; Estimated Glomerular Filt Rate > 60; Glucose 96 mg/dL (65-110); Lipase 116 U/L (23-300); Potassium 3.6 mmol/L (3.4-5.0); Sodium 136 mmol/L (137-145)
[2023-11-29] MEDS: KETOROLAC 15 MG/ML VIAL (*BKC) IV PUSH (21:26)
--- NOTE | 2023-11-29 21:31 | ED.GENADULT ---
HPI - General Adult General Chief complaint: Abdominal Pain Stated complaint: LLQ abd pain Time Seen by Provider: 11/29/23 20:20 Source: patient Mode of arrival: ambulatory Limitations: no limitations History of Present Illness HPI narrative: This is a 43-year-old female who presents to the ED with chief complaint of lower abdominal pain that started several days ago and worse today. Reports that the abdominal pain started mainly with having bowel movements. She reports a cramping pain to the left lower and right lower quadrants. Today she states the pain is become a little worse and is now worse with certain movements. She states it is more consistent and radiates superiorly in the abdomen. Denies diarrhea, GI bleeding. Denies nausea, vomiting, fevers, chills, urinary symptoms or flank pain. Denies vaginal complaints. Past surgical history of cholecystectomy. Related Data Home Medications Medication Instructions Recorded Confirmed lisinopril 20 mg tablet mg 10/12/22 valacyclovir 500 mg tablet 500 mg PO 05/24/23 Allergies Allergy/AdvReac Type Severity Reaction Status Date / Time No Known Allergies Allergy Verified 11/29/23 20:33 Review of Systems Review of Systems: All systems as dictated in [facility] Past Medical History Medical History (Updated 11/30/23 @ 00:00 by Catherine Escamilla) Essential hypertension Hypertension Obesity Ovarian cyst Vaginal discharge Surgical History Surgical History (Updated 05/24/23 @ 14:16 by Brina Whitman CMA) H/O section x3 H/O: hysterectomy without oophorectomy (hysterectomy performed due to dysfunctional uterine bleeding) History of cholecystectomy History of tubal ligation Family History Family History Father Heart disease Mother CHF (congestive heart failure) COPD (chronic obstructive pulmonary disease) Father Diabetes mellitus Grandparent Lung cancer Ovarian cancer Social History Social History Social History: the patient lives at home with her 3 children ages 15 16 and 17. She has 1 daughter and 2 sons. She lost 1 child at 19 weeks gestation. Two of her 3 children were premature. The patient has smoked 1 pack of cigarettes per day for 24 years. She started smoking at age 16. She drinks 3 or 4 alcoholic beverages 3 times a week. She smokes marijuana every couple of days. Smoking packs per day: 1 Smoking cigarettes per day: 20.0 Years smoked: 24 Smoking pack-years: 24.00 Smoking status: Current every day smoker Tobacco type: cigarettes Second hand tobacco smoke exposure: No Alcohol intake: current Drinks per week: 8 Alcohol use details: social Substance use: current Substance use type: marijuana Lack of Transportation: No Lack of Food: Never True Current Housing: I Have Housing Concerned About Future Housing: No Difficulty Paying Gas/Electric Bills: No Difficulty Paying for Meds: No Currently Unemployed: No Education: High School Diploma/GED Difficulty w/ Childcare or Family Care: No Additional living arrangements comments: Lives with boyfriend Gender identity (if verbalized by the patient): Female Spiritual care concerns: No Exam Narrative: GENERAL: Well-appearing, well-nourished, and in no acute distress. HEAD: Normocephalic, atraumatic. EYES: PERRLA and EOMI. ENT: Nares clear, no rhinorrhea or epistaxis. Mucous membranes moist. Oropharynx without tonsillar hypertrophy exudate or other lesions. NECK: Supple. No adenopathy or masses. CHEST: No respiratory distress. Clear to auscultation. No wheezes rales or rhonchi HEART: Regular rate and rhythm. No murmur heard. Normal peripheral pulses. ABDOMEN: Left lower and right lower quadrant tenderness present. Negative McBurney's point. Negative Rovsing sign. Negative peritoneal signs. soft, nondistended, no
[2023-11-29 21:43] VITALS: BP 141/99; PULSE 74; RESP 13; O2SAT 99
[2023-11-29 22:25] VITALS: PULSE 85; RESP 19; O2SAT 100
== END 2023-11-29 22:25 | disposition home or self-care (01) ==
PROVIDERS: Emergency Medicine; Emergency Provider Physician Assistant
DX: K52.9 Noninfective gastroenteritis and colitis, unspecified (principal); F17.210 Nicotine dependence, cigarettes, uncomplicated; I10 Essential (primary) hypertension
CPT/HCPCS: 36415; 74177; 80053; 81025; 83690; 85025; 96374; 99284; J1885; Q9967

== ENCOUNTER 2024-03-04 22:42 | Emergency (ER) | payer SELFPAY ==
[2024-03-04 22:49] VITALS: BP 141/93; PULSE 101; RESP 15; TEMP 36.6; O2SAT 100
[2024-03-04 23:26] VITALS: BP 141/93; PULSE 100; RESP 15; TEMP 36.6; O2SAT 100
--- NOTE | 2024-03-05 00:50 | PC.NURSE ---
Pt stated I'm leaving. It's ridiculous that I have been in this room for an hour and nobody has been in here to see me. This RN advised pt that it should not be too much longer and that we have been pretty busy tonight. Pt was asked to sign AMA paperwork and responded Uh No, I'm not signing anything. Nobody came in here to see me so Im not signing anything. and proceeded to walk out.
--- NOTE | 2024-03-05 00:51 | PC.NURSE ---
Pt ambulated out of the ED and stated this is fucking bullshit Pt then tried to push through the automatic sliding door knocking it out of the hinges.
== END 2024-03-05 00:50 | disposition left against medical advice (07) ==
DX: S61.213A Laceration without foreign body of left middle finger without damage to nail, initial encounter (principal); W26.0XXA Contact with knife, initial encounter
CPT/HCPCS: 99199

== ENCOUNTER 2024-04-05 15:05 | Emergency (ER) | payer SELFPAY ==
--- NOTE | ~2024-04-05 | XR_ITS ---
EXAMINATION: XR chest 1V portable 04/05/2024 16:11 INDICATION: Near syncope. Hypertension. PROCEDURE: AP portable chest COMPARISON: Comparison to multiple prior studies sequentially, with oldest reviewed study dated 12/2015. FINDINGS: The lungs are clear. The cardiomediastinal silhouette is within normal limits. There are no pleural effusions. There is no pneumothorax suspected. IMPRESSION: 1: NO ACUTE CARDIOPULMONARY DISEASE. Reviewed, dictated and finalized at location B.
[2024-04-05 15:08] VITALS: BP 165/108; PULSE 83; RESP 18; TEMP 36.8; O2SAT 97
--- NOTE | 2024-04-05 15:09 | ECG_ITS ---
Test Date: 2024-04-05 15:19:49 Measurements Intervals [place] Rate: 82 P: 46 WI: 160 QRS: 25 QRSD: 87 T: 2 QT: 387 QTc: 452 Interpretive Statements SINUS RHYTHM BORDERLINE ST-T WAVE ABNORMALITY- INFERIOR LEADS BORDERLINE ECG No previous ECG available for comparison Electronically Signed On 04-05-2024 16:02:58 CDT by Jesus Kasper D.O.
--- NOTE | 2024-04-05 15:38 | ED.ARRPALP ---
HPI - Arrhythmia/Palpitations General Chief Complaint: Arrhythmia/Palpitations Stated Complaint: dizzy History of Present Illness HPI narrative: 43-year-old female presents to the emergency department for evaluation for sensation of rapid heart rate with associated lightheaded dizziness. 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 Patient states she felt warm on the inside and had some associated dizziness. Patient decided to call EMS. While she is waiting for EMS patient states that she when outside and waited. Patient states she did feel improved waiting outside states that her symptoms all lasted approximately 15 minutes. Upon arrival emergency department by EMS patient denies any chest pain shortness of breath nausea vomiting lightheaded dizziness or chest pain. Patient states he does still feel a little shaky he denies any other pain complaints. Patient has no prior history of her palpitations. Patient states she has been eating and drinking well. Related Data Home Medications Medication Instructions Recorded Confirmed lisinopril 20 mg tablet mg 10/12/22 Allergies Allergy/AdvReac Type Severity Reaction Status Date / Time No Known Allergies Allergy Verified 04/05/24 15:08 Review of Systems Review of Systems: All systems reviewed & are unremarkable except as noted in HPI and below PMFSH Past Medical History Medical History (Updated 04/05/24 @ 16:32 by Nixon Blanco MD) Essential hypertension Hypertension Obesity Ovarian cyst Vaginal discharge Surgical History Surgical History (Updated 05/24/23 @ 14:16 by Brina Whitman CMA) H/O section x3 H/O: hysterectomy without oophorectomy (hysterectomy performed due to dysfunctional uterine bleeding) History of cholecystectomy History of tubal ligation Family History Family History Father Heart disease Mother CHF (congestive heart failure) COPD (chronic obstructive pulmonary disease) Father Diabetes mellitus Grandparent Lung cancer Ovarian cancer Social History Social History Social History: the patient lives at home with her 3 children ages 15 16 and 17. She has 1 daughter and 2 sons. She lost 1 child at 19 weeks gestation. Two of her 3 children were premature. The patient has smoked 1 pack of cigarettes per day for 24 years. She started smoking at age 16. She drinks 3 or 4 alcoholic beverages 3 times a week. She smokes marijuana every couple of days. Smoking packs per day: 1 Smoking cigarettes per day: 20.0 Years smoked: 24 Smoking pack-years: 24.00 Smoking status: Current every day smoker Tobacco type: cigarettes Second hand tobacco smoke exposure: No Alcohol intake: current Drinks per week: 8 Alcohol use details: social Substance use: current Substance use type: marijuana Lack of Transportation: No Lack of Food: Never True Current Housing: I Have Housing Concerned About Future Housing: No Difficulty Paying Gas/Electric Bills: No Difficulty Paying for Meds: No Currently Unemployed: No Education: High School Diploma/GED Difficulty w/ Childcare or Family Care: No Additional living arrangements comments: Lives with boyfriend Gender identity (if verbalized by the patient): Female Spiritual care concerns: No Exam Narrative: APPEARANCE: Well appearing, no pain, no distress, well-nourished. HEAD: normocephalic, atraumatic. EYES: PERRLA/EOMI, conjunctivae clear. NOSE: Normal no drainage EARS:TMS clear with good light reflex. THROAT: Pharynx clear, no exudate. NECK: Supple. No adenopathy, no masses. RESPIRATORY: Airway patent, respirations nonlabored. Clear to auscultation bilaterally, no rales, rhonchi, wheezing. CARDIOVASCULAR: Regular rate and rhythm without murmurs rubs or gallops. ABDOMINAL: Soft,
[2024-04-05 15:46] LABS: Basophils Absolute Auto 0.1 K/mm3 (0.0-0.1); Basophils Percent Auto 0.5 % (0.2-1.2); Eosinophils Absolute Auto 0.2 K/mm3 (0-0.3); Eosinophils Percent Auto 1.6 % (0-4.4); Hematocrit 43.4 % (37.0-47.0); Hemoglobin 14.2 g/dL (12.0-15.0); Immature Granulocyte Absolute 0.08 K/mm3 (0.00-0.031); Immature Granulocyte Percent A 0.6 % (0-0.5); Lymphocytes Absolute Auto 2.29 K/mm3 (0.9-3.2); Lymphocytes Percent Auto 18.3 % (18.3-44.2); Mean Corpuscular HGB Conc 32.7 g/dl (32-36); Mean Corpuscular Hemoglobin 33.2 pg (26-34); Mean Corpuscular Volume 101.4 fl (80-100); Mean Platelet Volume 8.9 fl (7.4-10.4); Monocytes Percent Auto 7.9 % (2.6-8.5); Neutrophils Absolute Auto 8.9 K/mm3 (1.3-6.7); Neutrophils Percent Auto 71.1 % (45.5-73.1); Platelet Count Result 281 k/mm3 (150-375); Red Blood Count 4.28 M/mm3 (4.2-5.4); White Blood Count 12.5 K/mm3 (4.5-10.0)
[2024-04-05 15:50] LABS: Glucose Point of Care 100 mg/dl (65-105)
[2024-04-05 15:57] LABS: Partial Thromboplastin Time 23.1 Seconds (22.3-36.8); Prothrombin Time 13.2 Seconds (11.1-14.7)
[2024-04-05 15:59] LABS: Add Urine Microscopic? YES; Alanine Aminotransferase 16 U/L (6-35); Albumin Level 4.4 g/dL (3.5-5.1); Alkaline Phosphatase 57 U/L (38-126); Anion Gap 9 mmol/L (4-12); Appearance Urine Cloudy (Clear); Aspartate Amino Transferase 24 U/L (14-36); Bacteria Urine 4+ /hpf; Bilirubin Urine Negative (Negative); Bilirubin,Total 0.6 mg/dL (0.2-1.3); Blood Urea Nitrogen 8 mg/dL (7-17); Blood Urine Negative (Negative); Carbon Dioxide 31 mmol/L (22-30); Chloride 100 mmol/L (98-107); Color Urine Dark Yellow (Yellow); Estimated CRCL calculation 87 ml/min; Estimated Glomerular Filt Rate > 60; Glucose 94 mg/dL (65-110); Glucose Urine UA Negative (Negative); Hyaline Casts Urine Present /lpf; Ketones Urine Negative (Negative); Leukocyte Esterase Ur Negative LEU/UL (Negative); Magnesium 1.8 mg/dL (1.6-2.3); Nitrate Urine Negative (Negative); Potassium 3.5 mmol/L (3.4-5.0); Protein Urine 2+ mg/dL (Negative); Sodium 140 mmol/L (137-145); Specific Grav Ur 1.026 (1.001-1.035); Squamous Epithelial Cell Urine Many /hpf (Few); WBC Urine 0-5 /hpf (0-3); pH Urine 5.5 (5.0-9.0)
[2024-04-05 16:06] LABS: D Dimer < 0.27 ug/mL (<0.48)
[2024-04-05] MEDS: SODIUM CHLORIDE 0.9% IV 1,000 ML 999 ML IV CONT (16:20)
[2024-04-05 16:23] VITALS: PULSE 75
[2024-04-05 16:28] VITALS: BP 162/105; PULSE 71
[2024-04-05 16:30] VITALS: BP 167/115; PULSE 73
[2024-04-05 16:32] VITALS: BP 164/114; PULSE 72
[2024-04-05 17:17] VITALS: BP 164/114; PULSE 85; RESP 16; O2SAT 98
== END 2024-04-05 17:17 | disposition home or self-care (01) ==
PROVIDERS: Emergency Provider Emergency Medicine
DX: R00.2 Palpitations (principal); I10 Essential (primary) hypertension; E66.9 Obesity, unspecified; Z68.32 Body mass index [BMI] 32.0-32.9, adult; F17.210 Nicotine dependence, cigarettes, uncomplicated; Z90.49 Acquired absence of other specified parts of digestive tract; Z90.710 Acquired absence of both cervix and uterus; Z79.899 Other long term (current) drug therapy; R94.31 Abnormal electrocardiogram [ECG] [EKG]
CPT/HCPCS: 36415; 71045; 80053; 81001; 81025; 82948; 83735; 84443; 85025; 85380; 85610; 85730; 93005; 99284; J7030

== ENCOUNTER 2024-05-21 03:25 | Inpatient (IN) | payer SELFPAY ==
--- NOTE | ~2024-05-21 | XR_ITS ---
EXAMINATION: XR chest 1V portable DATE: 05/21/2024 16:09 INDICATION: Sepsis TECHNIQUE: frontal view of the chest was obtained. COMPARISON: Chest radiograph dated 04/05/2024 FINDINGS: The lungs remain clear with no focal airspace opacities, pulmonary edema, pleural effusion or pneumot horax. The cardiomediastinal silhouette is normal. Visualized bones and soft tissues are unremarkable . IMPRESSION: 1. No acute cardiopulmonary disease. Reviewed, dictated and finalized at location A.
--- NOTE | ~2024-05-21 | CT_ITS ---
CT of the Abdomen and Pelvis: Indication: Abdominal pain Technique: 2.5 mm axial scans were obtained through the abdomen and pelvis following intravenous adm inistration of 100 cc of Omnipaque 350. Dose reduction technique was used on this scan by utilizing a utomated exposure control and iterative reconstruction technique. The dose-length product (DLP) was 7 96.16 mGy-cm. COMPARISON: 11/29/2023 Findings: Scans through the lung bases are unremarkable. There is diffuse hepatic steatosis. Cholecystectomy clips are present. The spleen, pancreas, adrenals and kidneys are within normal limits. No evidence of aortic aneurysm. No lymphadenopathy. There is wall thickening of multiple distal/terminal loops with surrounding inflammatory change in th e mesentery. There are 2 small fluid collections adjacent to the terminal (coronal images 49-56), whi ch could reflect small abscesses, possibly intramural, or possibly inflamed diverticula. Trace ascite s noted. Images through the pelvis were performed. Urinary bladder collapsed. No pelvic mass evident. Impression: Extensive wall thickening and inflammatory change of multiple distal/terminal ileal loops, compatible with nonspecific enteritis or inflammatory bowel disease. 2 small abscesses adjacent to the terminal ileum, possibly intramural, less likely inflamed diverticula. Diffuse hepatic steatosis. Reviewed, dictated and finalized at location M. Impression: Extensive wall thickening and inflammatory change of multiple distal/terminal i hinojosa loops, compatible with nonspecific enteritis or inflammatory bowel disease . 2 small abscesses adjacent to the terminal ileum, possibly intramural, less l ikely inflamed diverticula. Diffuse hepatic steatosis.
[2024-05-21 03:28] VITALS: BP 142/83; PULSE 79; RESP 14; TEMP 36.7; O2SAT 98
--- NOTE | 2024-05-21 03:36 | ECG_ITS ---
Test Date: 2024-05-21 03:53:00 Measurements Intervals [place] Rate: 72 P: 36 VT: 136 QRS: 32 QRSD: 85 T: 8 QT: 404 QTc: 442 Interpretive Statements SINUS RHYTHM MODERATE T-WAVE ABNORMALITY, CONSIDER ANTERIOR ISCHEMIA ABNORMAL ECG Compared to ECG 04/05/2024 15:19:49 T-wave abnormality now present Possible ischemia now present Electronically Signed On 05-21-2024 06:33:14 CDT by Jesus Kasper D.O.
[2024-05-21] MEDS: ONDANSETRON INJ 4 MG/2 ML VIAL IV PUSH (03:48)
[2024-05-21] MEDS: SODIUM CHLORIDE 0.9% IV 2,000 ML 999 ML IV CONT (03:48)
[2024-05-21] MEDS: KETOROLAC 15 MG/ML VIAL (*BKC) IV PUSH (03:49)
[2024-05-21 03:50] LABS: Basophils Absolute Auto 0.1 K/mm3 (0.0-0.1); Basophils Percent Auto 0.3 % (0.2-1.2); Eosinophils Absolute Auto 0.2 K/mm3 (0-0.3); Eosinophils Percent Auto 0.9 % (0-4.4); Hematocrit 42.6 % (37.0-47.0); Immature Granulocyte Absolute 0.08 K/mm3 (0.00-0.031); Immature Granulocyte Percent A 0.4 % (0-0.5); Lymphocytes Absolute Auto 2.12 K/mm3 (0.9-3.2); Lymphocytes Percent Auto 11.5 % (18.3-44.2); Mean Corpuscular HGB Conc 32.9 g/dl (32-36); Mean Corpuscular Hemoglobin 32.8 pg (26-34); Mean Corpuscular Volume 99.8 fl (80-100); Mean Platelet Volume 9.2 fl (7.4-10.4); Monocytes Absolute Auto 1.3 K/mm3 (0.1-0.6); Monocytes Percent Auto 7.1 % (2.6-8.5); Neutrophils Absolute Auto 14.7 K/mm3 (1.3-6.7); Neutrophils Percent Auto 79.8 % (45.5-73.1); Platelet Count Result 268 k/mm3 (150-375); Red Blood Count 4.27 M/mm3 (4.2-5.4); Red Cell Distribution Width 13.6 % (11.5-14.5); White Blood Count 18.4 K/mm3 (4.5-10.0)
[2024-05-21 04:01] LABS: Alanine Aminotransferase 18 U/L (6-35); Alkaline Phosphatase 65 U/L (38-126); Anion Gap 9 mmol/L (4-12); Aspartate Amino Transferase 27 U/L (14-36); Bilirubin,Total 0.7 mg/dL (0.2-1.3); Blood Urea Nitrogen 9 mg/dL (7-17); Calcium 9.2 mg/dL (8.4-10.2); Carbon Dioxide 27 mmol/L (22-30); Chloride 101 mmol/L (98-107); Estimated CRCL calculation 113 ml/min; Estimated Glomerular Filt Rate > 60; Glucose 113 mg/dL (65-110); Lipase 81 U/L (23-300); Potassium 3.3 mmol/L (3.4-5.0); Sodium 137 mmol/L (137-145)
[2024-05-21 04:09] LABS: Bacteria Urine 1+ /hpf; Non Pathogenic Casts 0-2; Squamous Epithelial Cell Urine Moderate /hpf (Few)
[2024-05-21 04:26] LABS: Add Urine Microscopic? YES; Appearance Urine Clear (Clear); Color Urine Yellow (Yellow)
[2024-05-21 04:27] LABS: Bilirubin Urine 1+ (Negative); Blood Urine 1+ (Negative); Glucose Urine UA Negative (Negative); Ketones Urine Negative (Negative); Leukocyte Esterase Ur Negative LEU/UL (Negative); Nitrate Urine Negative (Negative); Protein Urine 1+ mg/dL (Negative); Urobilinogen Urine 0.2 mg/dL (<2.0)
--- NOTE | 2024-05-21 04:31 | ED.GENADULT ---
HPI - General Adult General Chief complaint: Abdominal Pain Stated complaint: abd pain Time Seen by Provider: 05/21/24 03:27 History of Present Illness HPI narrative: This is a 44-year-old female presenting ED with chief complaint of abdominal pain. The pain started at 12:30 p.m. this morning is located around her umbilicus. It is a sharp pain that is starting to radiate to the right lower side. It is 8 out 10 intensity and comes and goes. She has never had pain like this before there is no exacerbating alleviating factors. She did have nausea and vomiting and loose bowel movement. Patient noticed some blood on the toilet paper and in the bowl after a bowel movement. She does have history of hemorrhoids. No fevers chills chest pain difficulty breathing urinary symptoms or vaginal discharge. Related Data Home Medications Medication Instructions Recorded Confirmed lisinopril 20 mg tablet mg 10/12/22 Allergies Allergy/AdvReac Type Severity Reaction Status Date / Time No Known Allergies Allergy Verified 04/05/24 15:08 [facility] Past Medical History Medical History Essential hypertension Hypertension Obesity Ovarian cyst Vaginal discharge Surgical History Surgical History H/O section x3 H/O: hysterectomy without oophorectomy (hysterectomy performed due to dysfunctional uterine bleeding) History of cholecystectomy History of tubal ligation Family History Family History Father Heart disease Mother CHF (congestive heart failure) COPD (chronic obstructive pulmonary disease) Father Diabetes mellitus Grandparent Lung cancer Ovarian cancer Social History Social History Social History: the patient lives at home with her 3 children ages 15 16 and 17. She has 1 daughter and 2 sons. She lost 1 child at 19 weeks gestation. Two of her 3 children were premature. The patient has smoked 1 pack of cigarettes per day for 24 years. She started smoking at age 16. She drinks 3 or 4 alcoholic beverages 3 times a week. She smokes marijuana every couple of days. Smoking packs per day: 1 Smoking cigarettes per day: 20.0 Years smoked: 24 Smoking pack-years: 24.00 Smoking status: Current every day smoker Tobacco type: cigarettes Second hand tobacco smoke exposure: No Alcohol intake: current Drinks per week: 8 Alcohol use details: social Substance use: current Substance use type: marijuana Lack of Transportation: No Lack of Food: Never True Current Housing: I Have Housing Concerned About Future Housing: No Difficulty Paying Gas/Electric Bills: No Difficulty Paying for Meds: No Currently Unemployed: No Education: High School Diploma/GED Difficulty w/ Childcare or Family Care: No Additional living arrangements comments: Lives with boyfriend Gender identity (if verbalized by the patient): Female Spiritual care concerns: No Exam Narrative: APPEARANCE: No apparent distress. Head: atraumatic. EYES: EOMI, NOSE: Atraumatic NECK: Trachea midline RESPIRATORY: No increased rate of breathing clear to auscultation CARDIOVASCULAR: RRR, ABDOMINAL: Tender to palpation in the umbilical and right lower quadrant. Rectal exam: 2 external hemorrhoids, no sean blood on exam but Hemoccult positive MUSCULOSKELETAl: No obvious deformities NEURO: Alert. Moving 4/4 extremities SKIN:: Warm, dry. Normal color PSYCHIATRIC: Normal affect Course Vital Signs Vital signs: Vital Signs Temperature 98.0 F 05/21/24 03:28 Pulse Rate 79 05/21/24 03:28 Respiratory Rate 14 05/21/24 03:28 Blood Pressure 142/83 H 05/21/24 03:28 Pulse Oximetry 98 05/21/24 03:28 Oxygen Delivery Room Air 05/21/24 03:28 Temperature 98.0 F 05/21/24 03:28 P
[2024-05-21] MEDS: POTASSIUM CHLORIDE INJ 40 MEQ in SODIUM CHLORIDE 0.9% IV 500 ML 130 MEQ IVPB (04:50)
[2024-05-21] MEDS: HYDROmorphone HCL INJ (*CRX) 1 MG/ML SYR 0.5 MG IV PUSH (04:50)
[2024-05-21 04:59] LABS: BEDSIDEPREGUCG Negative
[2024-05-21 07:01] VITALS: BP 118/71; PULSE 66; RESP 14; O2SAT 100
[2024-05-21] MEDS: metroNIDAZOLE 500 MG/ISO 100ML 500 MG/100 ML BAG 100 MG IVPB ×3 (07:45→21:43)
[2024-05-21] MEDS: LACTATED RINGERS 1,000 ML 125 ML IV CONT ×2 (07:45→21:40)
--- NOTE | 2024-05-21 07:45 | PC.NURSE ---
Flagyl compactability verified with Potassium
[2024-05-21 07:50] VITALS: BP 118/71; PULSE 78; RESP 20; TEMP 36.6; O2SAT 96
[2024-05-21 07:54] VITALS: BP 118/71; PULSE 70; RESP 18; TEMP 36.6; O2SAT 98
--- NOTE | 2024-05-21 08:40 | P.CONGI_ITS ---
I, Herman Meek MD, have provided a substantive portion of the care of this patient and discussed the patient with my Nurse Practitioner. I have reviewed any new relevant radiographic and laboratory results including medications. I agree with her documentation as noted below.?I personally performed the medical decision making and much of the history and exam for this encounter. briefly, she is here with new onset of severe abdominal pain and noted blood in stools, CT scan with enterocolitis (never had colonoscopy), also elevated wbc, normal crp. Had similar episode months ago but in between she was doing normal. Plan is medical support, get stool samples, colonoscopy as outpatient but if condition does not get better then while she is here. Assessment and Plan Assessment and plan (1) Enterocolitis: Code(s): K52.9 - Noninfective gastroenteritis and colitis, unspecified Status: Acute (2) Abdominal pain: Qualifiers: Abdominal location: generalized Qualified Code(s): R10.84 - Generalized abdominal pain Code(s): R10.9 - Unspecified abdominal pain Status: Acute (3) Hepatic steatosis: Code(s): K76.0 - Fatty (change of) liver, not elsewhere classified Status: Acute (4) Hematochezia: Code(s): K92.1 - Melena Status: Acute Plan 1. Generalized abdominal pain / bloody stools / diarrhea: Patient has never had an EGD or colonoscopy. Family Hx negative for CRC or IBD. CT abd/pelvis 024 showed extensive wall thickening and inflammatory change of multiple distal/terminal ileal loops compatible with nonspecific enteritis or inflammatory bowel disease. Similar findings of enterocolitis on CT 11/29/2023. Patient with acute onset of pain starting around 12:30 last night, pain tempor arily improved with bowel movement but then return. Pain started near her umbilicus and then moved throughout the abdomen. Reports loose stools 5-6 times per day since cholecystectomy in 2014, somewhat urgent especially after dairy. Bright red blood on toilet paper last night/early this morning and again with bowel movement today. DDx: infectious vs inflammatory bowel disease vs ischemic colitis vs bile acid diarrhea * Will check fecal calprotectin to evaluate for IBD and serve as baseline * Stool studies to evaluate for infectious etiology * Continue antibiotics * Continue supportive care with pain management * Ok to advance diet, orders entered * Outpatient colonoscopy, office notified 2. Hepatic steatosis: CT showed hepatic steatosis. LFTs this admission normal. No history of prior LFT elevation. patient with BMI of 33%. History of drinking 5-10 alcoholic beverages weekly. * Weight loss, healthy eating, cholesterol control, exercise, and alcohol avoidance recommended * can be followed outpatient Thank you very much for allowing me to share in the care of this very nice patient. This report may have been done utilizing a voice recognition system. Attempts have been made to correct errors. However, there may be uncorrected grammatical, spelling, and recognition errors present. GI Consult Note Consult date/time: 05/21/24 08:40 Reason for consult: Enterocoloitis HPI: This is a pleasant 44 year old female with a past medical surgical history of HTN, ovarian cysts, x3, tubal ligation, cholecystectomy, and hysterectomy she presented to the ER room 05/21/2024 with complaints of umbilical abdominal pain. GI consulted for enterocolitis. Patient was previously seen in the emergency room 11/29/2023 with similar complaints and was di
--- NOTE | 2024-05-21 08:40 | WPDGICN ---
Assessment and Plan Assessment and plan (1) Enterocolitis: Code(s): K52.9 - Noninfective gastroenteritis and colitis, unspecified Status: Acute (2) Abdominal pain: Qualifiers: Abdominal location: generalized Qualified Code(s): R10.84 - Generalized abdominal pain Code(s): R10.9 - Unspecified abdominal pain Status: Acute (3) Hepatic steatosis: Code(s): K76.0 - Fatty (change of) liver, not elsewhere classified Status: Acute (4) Hematochezia: Code(s): K92.1 - Melena Status: Acute Plan 1. Generalized abdominal pain / bloody stools / diarrhea: Patient has never had an EGD or colonoscopy. Family Hx negative for CRC or IBD. CT abd/pelvis 05/21/2024 showed extensive wall thickening and inflammatory change of multiple distal/terminal ileal loops compatible with nonspecific enteritis or inflammatory bowel disease. Similar findings of enterocolitis on CT 11/29/2023. Patient with acute onset of pain starting around 12:30 last night, pain temporarily improved with bowel movement but then return. Pain started near her umbilicus and then moved throughout the abdomen. Reports loose stools 5-6 times per day since cholecystectomy in 2014, somewhat urgent especially after dairy. Bright red blood on toilet paper last night/early this morning and again with bowel movement today. DDx: infectious vs inflammatory bowel disease vs ischemic colitis vs bile acid diarrhea Will check fecal calprotectin to evaluate for IBD and serve as baseline Stool studies to evaluate for infectious etiology Continue antibiotics Continue supportive care with pain management Ok to advance diet, orders entered Outpatient colonoscopy, office notified 2. Hepatic steatosis: CT showed hepatic steatosis. LFTs this admission normal. No history of prior LFT elevation. patient with BMI of 33%. History of drinking 5-10 alcoholic beverages weekly. Weight loss, healthy eating, cholesterol control, exercise, and alcohol avoidance recommended can be followed outpatient Thank you very much for allowing me to share in the care of this very nice patient. This report may have been done utilizing a voice recognition system. Attempts have been made to correct errors. However, there may be uncorrected grammatical, spelling, and recognition errors present. GI Consult Note Consult date/time: 05/21/24 08:40 Reason for consult: Enterocoloitis HPI: This is a pleasant 44 year old female with a past medical surgical history of HTN, ovarian cysts, x3, tubal ligation, cholecystectomy, and hysterectomy she presented to the ER room 05/21/2024 with complaints of umbilical abdominal pain. GI consulted for enterocolitis. Patient was previously seen in the emergency room 11/29/2023 with similar complaints and was diagnosed and treated for enterocolitis. Patient presented today with complaints of umbilical abdominal pain that started 12:30 this morning and lasted for about an hour. Pain laid off for about 30 minutes and then started back up. Pain was sharp and seemed to move up. Pain improved after bowel movement but then started hurting again when patient laid down. Patient had one episode of nausea and vomiting. Patient reports feeling a little bloated. Denies difficult or painful swallowing, food getting stuck, or heartburn. Reports poor appetite at baseline. Denies unexplained weight loss. Bowel movements 5-6 times per day, loose, somewhat urgent at times especially after eating dairy. Denies black tarry stools. Reports seeing bright red blood on toilet paper last night/early this morning and again with bowel movement today in hospital. Denies taking NSAIDs or blood thinners. ENDOSCOPY HISTORY: EGD: Patient has never had an EGD COLONOSCOPY: Patient has never had a colonoscopy LABS AND STOOL STUDIES: Labs 05/21/2024: Na 137, K 3.3, BUN 9, Cr 0.60, GFR > 60, WBC 18, Hgb 14, Hct 43, MCV 100, plt 268,
[2024-05-21] MEDS: PANTOPRAZOLE SODIUM IV 40 MG VIAL IV PUSH (11:01)
[2024-05-21 11:15] LABS: CRP 1.1 mg/dL (<1.0)
[2024-05-21] MEDS: KETOROLAC 30 MG/ML VIAL (*BKC) IV PUSH ×2 (12:06→17:55)
[2024-05-21 14:00] VITALS: BP 108/76; PULSE 78; RESP 18; TEMP 36.2; O2SAT 98
--- NOTE | 2024-05-21 15:54 | PM.IMHP ---
H&P: HPI History of Present Illness Date/Time: 05/21/24 15:54 Chief Complaint: abd pain Review of Systems Review of Systems: 44-year-old female past medical history of hypertension presented to the ER on account of abdominal pain. Patient reported history of present abdominal pain and upper abdominal region, 9/10 intensity constant associated with vomiting and diarrhea status multiple study and this morning. Otherwise denies any chest pain shortness a breath no bloody stool no dysuria no focal symptoms. Patient smokes about half a pack a day, drinks 5-6 alcohol every week smokes marijuana. ER evaluation notable for blood pressure 164/1 4, heart rate 85 respiratory 16 saturation 98% on room air. WBC 18.4, potassium 3.3, creatinine 0.6, CT abdomen and pelvis showed extensive thickening and inflammatory change and multiple distal and terminal ileal loops compatible with nonspecific enteritis of inflammatory bowel disease 2 small abscesses adjacent to the terminal ileum possible intramural less likely diverticular. Patient was admitted for further evaluation and care. Constitutional: Comments: All other systems were reviewed and negative except as noted in the history above. [facility] Past Medical History Medical History Essential hypertension Hypertension Obesity Ovarian cyst Vaginal discharge Surgical History Surgical History H/O section x3 H/O: hysterectomy without oophorectomy (hysterectomy performed due to dysfunctional uterine bleeding) History of cholecystectomy History of tubal ligation Family History Family History Father Heart disease Mother CHF (congestive heart failure) COPD (chronic obstructive pulmonary disease) Father Diabetes mellitus Grandparent Lung cancer Ovarian cancer Social History Social History Social History: the patient lives at home with her 3 children ages 15 16 and 17. She has 1 daughter and 2 sons. She lost 1 child at 19 weeks gestation. Two of her 3 children were premature. The patient has smoked 1 pack of cigarettes per day for 24 years. She started smoking at age 16. She drinks 3 or 4 alcoholic beverages 3 times a week. She smokes marijuana every couple of days. Smoking packs per day: 1 Smoking cigarettes per day: 20.0 Years smoked: 24 Smoking pack-years: 24.00 Smoking status: Current every day smoker Tobacco type: cigarettes Second hand tobacco smoke exposure: No Alcohol intake: current Drinks per week: 5 Alcohol use details: social Substance use: current Substance use type: marijuana Do You Feel Safe in your Home?: Yes Lack of Transportation: No Lack of Food: Never True Current Housing: I Have Housing Concerned About Future Housing: No Difficulty Paying Gas/Electric Bills: No Difficulty Paying for Meds: No Currently Unemployed: No Education: High School Diploma/GED Difficulty w/ Childcare or Family Care: No Additional living arrangements comments: Lives with boyfriend Gender identity (if verbalized by the patient): Female Spiritual care concerns: No Meds Home Medications and Allergies Home Medications Medication Instructions Recorded Confirmed Type lisinopril 20 mg tablet 20 mg PO DAILY 60 days #60 tabs 04/05/24 05/21/24 Rx amlodipine 5 mg tablet 5 mg PO DAILY 05/21/24 05/21/24 History Allergies Allergy/AdvReac Type Severity Reaction Status Date / Time No Known Allergies Allergy Verified 05/21/24 06:18 Vital Signs Vital Signs - 24 hr 05/21/24 03:28 05/21/24 07:01 05/21/24 07:50 Temperature 98.0 F 97.9 F Pulse Rate 79 66 78 Respiratory Rate 14 14 20 Blood Pressure 142/83 H 118/71 118/71 Pulse Oximetry 98 100 96 Oxygen Delivery Room Air 05/21/24 07:54
[2024-05-21 20:49] VITALS: BP 137/88; PULSE 68; RESP 17; TEMP 36.4; O2SAT 98
[2024-05-22] MEDS: KETOROLAC 30 MG/ML VIAL (*BKC) IV PUSH ×2 (00:38→08:22)
[2024-05-22 05:41] VITALS: BP 135/89; PULSE 74; RESP 16; TEMP 36.7; O2SAT 96
[2024-05-22] MEDS: LACTATED RINGERS 1,000 ML 125 ML IV CONT (05:59)
[2024-05-22] MEDS: metroNIDAZOLE 500 MG/ISO 100ML 500 MG/100 ML BAG 100 MG IVPB (06:00)
[2024-05-22 06:31] LABS: Hematocrit 37.8 % (37.0-47.0); Hemoglobin 12.1 g/dL (12.0-15.0); Mean Corpuscular Hemoglobin 32.6 pg (26-34); Mean Corpuscular Volume 101.9 fl (80-100); Mean Platelet Volume 9.2 fl (7.4-10.4); Platelet Count Result 210 k/mm3 (150-375); Red Blood Count 3.71 M/mm3 (4.2-5.4); Red Cell Distribution Width 13.3 % (11.5-14.5); White Blood Count 9.7 K/mm3 (4.5-10.0)
[2024-05-22 06:41] LABS: Lactic Acid Reflex 0.7 mmol/L (0.7-2.0)
[2024-05-22 06:43] LABS: Alanine Aminotransferase 22 U/L (6-35); Albumin Level 3.3 g/dL (3.5-5.1); Alkaline Phosphatase 59 U/L (38-126); Anion Gap 6 mmol/L (4-12); Aspartate Amino Transferase 32 U/L (14-36); Bilirubin,Total 0.2 mg/dL (0.2-1.3); Blood Urea Nitrogen 4 mg/dL (7-17); Calcium 8.4 mg/dL (8.4-10.2); Carbon Dioxide 27 mmol/L (22-30); Chloride 102 mmol/L (98-107); Estimated CRCL calculation 113 ml/min; Estimated Glomerular Filt Rate > 60; Glucose 104 mg/dL (65-110); Magnesium 1.9 mg/dL (1.6-2.3); Potassium 3.7 mmol/L (3.4-5.0); Sodium 135 mmol/L (137-145)
[2024-05-22] MEDS: PANTOPRAZOLE SODIUM IV 40 MG VIAL IV PUSH (08:23)
[2024-05-22] MEDS: ENOXAPARIN 40 MG/0.4 ML SYRINGE SUB-Q (08:28)
--- NOTE | 2024-05-22 12:49 | PM.DS ---
DS: Admitting Diagnosis Discharge Date 05/22/24 Admitting Diagnosis Enterocolitis with possible ileal abscess DS: Discharge Diagnosis Discharge Diagnosis (1) Enterocolitis: Code(s): K52.9 - Noninfective gastroenteritis and colitis, unspecified Status: Acute DS: Summary Hospital Course Hospital Course: Plan Enterocolitis with ileus abscesses Present with diarrhea vomiting, resolved CT abdomen and pelvis reviewed Completed 2 days of Rocephin and Falgyl P.r.n. pain control and Zofran for nausea vomiting. Gi evaluated and recommended advance of diet which patient tolerated GI will follow up outpatient and possibly do colonoscopy Discharged on 6 more days of Levaquin and Flagyl F/u with GI as instructed Hypertension Continue home meds F/u with PCP in 3-5 days F/u with GI as instructed Time Spent with Patient Time attestation: Total time spent providing and/or coordinating discharge services: DS: Data Data Completed and Pending Labs on day of discharge: Labs from last 24 hours 05/22/24 06:19 WBC 9.7 RBC 3.71 L Hgb 12.1 Hct 37.8 MCV 101.9 H MCH 32.6 MCHC 32.0 RDW 13.3 Plt Count 210 MPV 9.2 Immature Gran % (Auto) Not Reportable Neut % (Auto) Not Reportable Lymph % (Auto) Not Reportable Brule % (Auto) Not Reportable Eos % (Auto) Not Reportable Baso % (Auto) Not Reportable Lymph # (Auto) Not Reportable Brule # (Auto) Not Reportable Eos # (Auto) Not Reportable Baso # (Auto) Not Reportable Abs Immat Gran (auto) Not Reportable Absolute Neuts (auto) Not Reportable Absolute Nucleated RBC Not Reportable Nucleated RBC % Not Reportable Sodium 135 L Potassium 3.7 Chloride 102 Carbon Dioxide 27 Anion Gap 6 BUN 4 L D Creatinine 0.60 L Estim Creat Clear Calc 113 Estimated GFR > 60 Glucose 104 Lactic Acid 0.7 Calcium 8.4 Magnesium 1.9 Total Bilirubin 0.2 AST 32 ALT 22 Alkaline Phosphatase 59 Total Protein 6.0 L Albumin 3.3 L Preliminary micro results at discharge 05/21/24 06:30 Blood Culture - Preliminary Blood 05/21/24 06:30 Blood Culture - Preliminary Blood Discharge Plan Discharge Attending physician on discharge: Odette Pablo Consulting providers: Herman Meek; Sher Segura Discharging Clinician: Odette Pablo Anticipated Discharge Date/Time: 05/22/24 12:43 Patient Disposition: Home, Self-Care Activity: as tolerated Diet: as tolerated Patient Instructions: Antibiotic Form Stand Alone Forms: General Discharge Information Follow-up/Referrals: Herman Meek MD [Physician] - (F/u with GI as instructed ) Discharge Medications: New oxycodone-acetaminophen [Percocet] 7.5-325 mg tablet 1 tablet PO Q6H PRN (Reason: pain) Qty: 10 0RF levofloxacin 750 mg tablet 750 mg PO DAILY Qty: 6 0RF metronidazole [Flagyl] 375 mg capsule 500 mg PO Q8H 6 Days Qty: 24 0RF Continued amlodipine 5 mg tablet 5 mg PO DAILY lisinopril 20 mg tablet 20 mg PO DAILY 60 Days Qty: 60 0RF Date of admission: 05/21/24 12:00 Primary Care Provider: CamrynAnabelle Admitting Provider: Janay Eng Attending physician on admission: Janay Eng Condition: Stable
--- NOTE | 2024-05-22 14:08 | PM.CNGS ---
Assessment and Plan Assessment and plan (1) Ileitis: Code(s): K52.9 - Noninfective gastroenteritis and colitis, unspecified Status: Acute Assessment and Plan: CT showing wall thickening and inflammatory change of multiple ileal loops, compatible with enteritis or inflammatory bowel disease, with 2 small abscesses adjacent to the terminal ileum. No free intraperitoneal air or signs of a bowel obstruction. No peritoneal signs on exam. She is clinically improving with IV antibiotics. GI has been consulted and is planning for an outpatient colonoscopy. She is tolerating a regular diet. No indication for any surgical intervention at this time. We would recommend to continue antibiotics and follow up with GI. Thank you for allowing us to see the patient in consultation. (2) Abscess of pre-ileal region: Code(s): K65.1 - Peritoneal abscess Status: Acute Assessment and Plan: Continue antibiotics (3) Hematochezia: Code(s): K92.1 - Melena Status: Acute Assessment and Plan: GI following and is planning for an outpatient colonoscopy. (4) Hepatic steatosis: Code(s): K76.0 - Fatty (change of) liver, not elsewhere classified Status: Acute (5) Hypertension: Code(s): I10 - Essential (primary) hypertension Status: Acute (6) Tobacco abuse disorder: Code(s): Z72.0 - Tobacco use Status: Acute Plan I have discussed the patient's case and plan of care with Dr. Segura. Thank you for allowing us to see the patient in consultation and we will continue to follow along with you. History of Present Illness Consult details Consult date: 05/22/24 Reason for consult: other (Ileal abscess) Requesting physician: Odette Pablo MD Narrative: This is a 44-year-old with PMH of HTN, who we have been asked to see in surgical consultation for an ileal abscess. She presented to the ED yesterday with complaints of umbilical abdominal pain that started 2 nights ago. She reports associated nausea and 1 episode of vomiting. She felt like her pain improved after a bowel movement, but again returned. Given her persistent abdominal pain, she presented to the ED. labs showed a white blood cell count 75613, which came down to 9700 today. The abdomen and pelvis showed extensive wall thickening and inflammatory change of multiple distal/terminal ileal loops, compatible with nonspecific enteritis or inflammatory bowel disease. Also, there are two small abscesses seen adjacent to the terminal ileum, possibly intramural, less likely inflamed diverticula. Incidentally findings of hepatic steatosis. She was admitted to the hospitalist service and started on IV antibiotics. GI consulted and has ordered stool studies. No personal or family history of IBD. Denies unintentional weight loss. Reports having 4-5 loose stools daily since her cholecystectomy in 2014. Denies blood in her stool up until yesterday. She noticed blood on the toilet paper when wiping and some blood in the toilet. She reports a history of hemorrhoids. Her abdominal pain has improved today. She is tolerating a regular diet with no nausea or vomiting. Surgical history includes laparoscopic cholecystectomy, laparoscopic partial hysterectomy, and delivery. No previous colonoscopy or EGD. Review of Systems Review of Systems: All systems reviewed & are unremarkable except as noted in HPI and below PMFSH Past Medical History Medical History Essential hypertension Hypertension Obesity Ovarian cyst Vaginal discharge Surgical History Surgical History H/O section x3 H/O: hysterectomy without oophorectomy (hysterectomy performed due to dysfunctional uterine bleeding) History of cholecystectomy History of tubal ligation Family History Family History (Reviewed 05/22/24 @ 14:15 by Mamta
--- NOTE | 2024-05-22 14:53 | WPDGIPROGNO ---
Progress Note: A&P Assessment and Plan (1) Enterocolitis: Code(s): K52.9 - Noninfective gastroenteritis and colitis, unspecified Status: Acute Assessment and Plan: normalization of wbc doing much better she will complete antibiotics at home plan is colonoscopy as outpatient to assess if ibd evaluated by surgery advised to return if more pain, fever, etc (2) Hematochezia: Code(s): K92.1 - Melena Status: Acute (3) Diarrhea: Code(s): R19.7 - Diarrhea, unspecified Status: Acute (4) Abdominal pain: Qualifiers: Abdominal location: generalized Qualified Code(s): R10.84 - Generalized abdominal pain Code(s): R10.9 - Unspecified abdominal pain Status: Acute Assessment and Plan: improved (5) Leukocytosis: Qualifiers: Leukocytosis type: other Qualified Code(s): D72.828 - Other elevated white blood cell count Code(s): D72.829 - Elevated white blood cell count, unspecified Status: Acute Assessment and Plan: normal today Subjective Date/time seen: 05/22/24 14:53 Interval history: pain is much better and tolerating diet, she is feeling like going home evaluated also by surgery Review of Systems Review of Systems: All systems reviewed & are unremarkable except as noted in HPI and below Exam Const: General: comfortable and no acute distress Nutritional Appearance: average body habitus Orientation/consciousness: patient oriented x3 HENMT: Head: normocephalic and atraumatic Ears: hearing grossly normal bilaterally Eyes: General: appearance normal, both eyes and all related structures Neck: Neck: normal visual inspection Resp: Effort & Inspection: no respiratory distress Auscultation: clear to auscultation bilaterally Cardio: Rate: regular rate Rhythm: regular rhythm GI: Inspection: non-distended and no visible herniation GI Palp: Yes Soft to palpation, Yes Tenderness to palpation present (GI) (mild TTP in the upper abdomen, no rebound), No Guarding due to palpation present (GI) and No Rebound tenderness present Auscultation: normal bowel sounds Skin: General skin exam: normal color Neuro: General: moves all extremities and no focal motor deficits Speech: normal speech Motor exam (neuro): 5/5 motor strength present throughout Extrem: General: normal to inspection and no edema Psych: Mental Status: mental status grossly normal Attitude: cooperative Insight: Good insight present (Psych) Judgement: Good judgement present (Psych) Objective Data Vital Signs Vital Signs: Vital Signs - 24 hr 05/21/24 20:49 05/21/24 20:00 05/22/24 05:41 Temperature 97.6 F 98.1 F Pulse Rate 68 74 Respiratory Rate 17 16 Blood Pressure 137/88 135/89 Pulse Oximetry 98 96 Oxygen Delivery Room Air 05/22/24 08:00 Temperature Pulse Rate Respiratory Rate Blood Pressure Pulse Oximetry Oxygen Delivery Room Air Intake/Output Intake/Output: Intake & Output 05/19/24 05/20/24 05/21/24 05/22/24 23:59 23:59 23:59 23:59 Intake Total 3250 1290 Balance 3250 1290 Meds/Results Radiology Results: ITS Impressions Abdomen/Pelvis CT 05/21/24 06:24 Impression: Extensive wall thickening and inflammatory change of multiple distal/terminal ileal loops, compatible with nonspecific enteritis or inflammatory bowel disease. 2 small abscesses adjacent to the terminal ileum, possibly intramural, less likely inflamed diverticula. Diffuse hepatic steatosis. Chest X-Ray 05/21/24 16:10 IMPRESSION: 1. No acute cardiopulmonary disease. Labs Labs: Laboratory Results - last 24 hr 05/22/24 06:19 WBC 9.7 RBC 3.71 L Hgb 12.1 Hct 37.8 MCV 101.9 H MCH 32.6 MCHC 32.0 RDW 13.3 Plt Count 210 MPV 9.2 Immature Gran % (Auto) Not Reportable Neut % (Auto) Not Reportable Lymph % (Auto) Not Reportable Ocean % (Auto) Not Reportable Eos % (Auto) Not Reportable Baso %
== END 2024-05-22 14:40 | disposition home or self-care (01) | DRG 249 ==
LOC: ANHED 05:41 → ANH3MEDSUR 07:23
PROVIDERS: Nurse Practitioner Family; Admitting Provider Internal Medicine; Emergency Provider Emergency Medicine; PCP Registered Nurse; Visit Provider Internal Medicine
DX: K52.9 Noninfective gastroenteritis and colitis, unspecified (principal); K65.1 Peritoneal abscess; K92.1 Melena; K76.0 Fatty (change of) liver, not elsewhere classified; E66.9 Obesity, unspecified; F17.210 Nicotine dependence, cigarettes, uncomplicated; I10 Essential (primary) hypertension; Z90.49 Acquired absence of other specified parts of digestive tract; Z68.33 Body mass index [BMI] 33.0-33.9, adult
CPT/HCPCS: 36415; 71045; 74177; 80053; 81001; 81025; 83605; 83690; 83735; 85025; 86140; 87040; 87086; 93005; 96365; 96375; 99285; G0378; G0379; J0696; J1170; J1650; J1836; J1885; J2405; J2470; J3480; J7030; J7040; J7120; Q9967

== ENCOUNTER 2024-06-01 14:22 | Emergency (ER) | payer SELFPAY ==
--- NOTE | ~2024-06-01 | XR_ITS ---
XR chest 2V Ordering provider: Tootie Deleon APRN History: 44 years Female with . chest wall pain . Comparison: May 21, 2024 FINDINGS: MEDIASTINUM: The cardiac silhouette is not enlarged. LUNGS: No infiltrates, effusions or pneumothorax. OTHER: No free air under the diaphragm. IMPRESSION: No acute cardiopulmonary pathology. Reviewed, dictated and finalized at location A.
[2024-06-01 14:30] VITALS: BP 120/71; PULSE 89; RESP 20; TEMP 36.4; O2SAT 98
--- NOTE | 2024-06-01 14:38 | ED.URI ---
HPI - URI/Sore Throat General Chief Complaint: Unspecified Stated Complaint: Chest Wall Pain Time Seen by Provider: 06/01/24 14:38 Source: patient, RN notes reviewed and old records reviewed Mode of arrival: ambulatory Limitations: no limitations History of Present Illness HPI Narrative: Patient reports 1 episode of intermittent dull chest pain. She reports symptoms were intermittently present for approximately 5 minutes this morning. 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 She reports that she had no associated nausea, dizziness, shortness of breath. She is symptom-free upon presentation. She denies any relieving or exacerbating factors. She denies any injury or trauma. She voices no other concerns or complaints at this time. She has not been taking anything for her symptoms. Related Data Home Medications Medication Instructions Recorded Confirmed amlodipine 5 mg tablet 5 mg PO DAILY 05/21/24 06/01/24 Allergies Allergy/AdvReac Type Severity Reaction Status Date / Time No Known Allergies Allergy Verified 06/01/24 14:39 Review of Systems Review of Systems: All systems reviewed & are unremarkable except as noted in HPI and below Constitutional: Constitutional: Reports no additional constitutional complaints ENT: Reports system reviewed and no additional complaints, except as documented Cardiovascular: Cardiovascular: Reports as per HPI and Reports no additional cardiovascular complaints Respiratory: Respiratory: Reports as per HPI and Reports no additional respiratory complaints Gastrointestinal: Gastrointestinal: Reports no additional gastrointestinal complaints Musculoskeletal: Musculoskeletal: Reports no additional musculoskeletal complaints and Reports as per HPI PMFSH Past Medical History Medical History Essential hypertension Hypertension Obesity Ovarian cyst Vaginal discharge Surgical History Surgical History H/O section x3 H/O: hysterectomy without oophorectomy (hysterectomy performed due to dysfunctional uterine bleeding) History of cholecystectomy History of tubal ligation Family History Family History Father Heart disease Mother CHF (congestive heart failure) COPD (chronic obstructive pulmonary disease) Father Diabetes mellitus Grandparent Lung cancer Ovarian cancer Social History Social History Social History: the patient lives at home with her 3 children ages 15 16 and 17. She has 1 daughter and 2 sons. She lost 1 child at 19 weeks gestation. Two of her 3 children were premature. The patient has smoked 1 pack of cigarettes per day for 24 years. She started smoking at age 16. She drinks 3 or 4 alcoholic beverages 3 times a week. She smokes marijuana every couple of days. Smoking packs per day: 1 Smoking cigarettes per day: 20.0 Years smoked: 24 Smoking pack-years: 24.00 Smoking status: Current every day smoker Tobacco type: cigarettes Second hand tobacco smoke exposure: No Alcohol intake: current Drinks per week: 5 Alcohol use details: social Substance use: current Substance use type: marijuana Do You Feel Safe in your Home?: Yes Lack of Transportation: No Lack of Food: Never True Current Housing: I Have Housing Concerned About Future Housing: No Difficulty Paying Gas/Electric Bills: No Difficulty Paying for Meds: No Currently Unemployed: No Education: High School Diploma/GED Difficulty w/ Childcare or Family Care: No Additional living arrangements comments: Lives with boyfriend Gender identity (if verbalized by the patient): Female Spiritual care concerns: No Comments At the time of my signature, I reviewed and agree with the rené
== END 2024-06-01 15:15 | disposition home or self-care (01) ==
PROVIDERS: Emergency Provider Nurse Practitioner Family; PCP Registered Nurse
DX: R07.89 Other chest pain (principal); F17.210 Nicotine dependence, cigarettes, uncomplicated; F12.90 Cannabis use, unspecified, uncomplicated; I10 Essential (primary) hypertension; E66.9 Obesity, unspecified; Z68.30 Body mass index [BMI] 30.0-30.9, adult
CPT/HCPCS: 71046; 99213; G0463

== ENCOUNTER 2024-09-16 12:02 | Emergency (ER) | payer SELFPAY ==
[2024-09-16 12:06] VITALS: BP 138/90; PULSE 87; RESP 16; TEMP 37.2; O2SAT 100
--- NOTE | 2024-09-16 12:40 | ED.EYEPROB ---
HPI - Eye Problem General Chief complaint: Eye Problems Stated complaint: Left Eye Irritation Time Seen by Provider: 09/16/24 12:40 Source: patient, RN notes reviewed and old records reviewed Mode of arrival: ambulatory Limitations: no limitations History of Present Illness HPI Narrative: Patient presents with complaints of left eye irritation and drainage. She reports symptoms began yesterday, this morning she awakened with eye matted shut. She reports yellow drainage, itching, redness. She denies any injury or trauma. She does not wear contact lenses. She has not been using eye makeup. She denies any injury or trauma. Denies any pain or visual disturbance. No other concerns or complaints today Related Data Home Medications ?Medication ?Instructions ?Recorded ?Confirmed ?Last Taken ?Type amlodipine 5 mg tablet 5 mg PO DAILY 05/21/24 06/01/24 Unknown History Allergies Allergy/AdvReac Type Severity Reaction Status Date / Time No Known Allergies Allergy Verified 09/16/24 12:21 Review of Systems Review of Systems: All systems reviewed & are unremarkable except as noted in HPI and below Constitutional: Constitutional: Reports no additional constitutional complaints Eyes: Eyes: Reports as per HPI, Reports eye discharge, Reports irritation, Reports itchy eyes and Denies requires corrective lenses ENT: Reports system reviewed and no additional complaints, except as documented Cardiovascular: Cardiovascular: Reports no additional cardiovascular complaints Respiratory: Respiratory: Reports no additional respiratory complaints Gastrointestinal: Gastrointestinal: Reports no additional gastrointestinal complaints [facility] Past Medical History Medical History Essential hypertension Hypertension Obesity Ovarian cyst Vaginal discharge Surgical History Surgical History H/O section x3 H/O: hysterectomy without oophorectomy (hysterectomy performed due to dysfunctional uterine bleeding) History of cholecystectomy History of tubal ligation Family History Family History Father Heart disease Mother CHF (congestive heart failure) COPD (chronic obstructive pulmonary disease) Father Diabetes mellitus Grandparent Lung cancer Ovarian cancer Social History Social History Social History: the patient lives at home with her 3 children ages 15 16 and 17. She has 1 daughter and 2 sons. She lost 1 child at 19 weeks gestation. Two of her 3 children were premature. The patient has smoked 1 pack of cigarettes per day for 24 years. She started smoking at age 16. She drinks 3 or 4 alcoholic beverages 3 times a week. She smokes marijuana every couple of days. Smoking packs per day: 1 Smoking cigarettes per day: 20.0 Years smoked: 24 Smoking pack-years: 24.00 Smoking status: Current every day smoker Tobacco type: cigarettes Second hand tobacco smoke exposure: No Alcohol intake: current Drinks per week: 5 Alcohol use details: social Substance use: current Substance use type: marijuana Do You Feel Safe in your Home?: Yes Lack of Transportation: No Lack of Food: Never True Current Housing: I Have Housing Concerned About Future Housing: No Difficulty Paying Gas/Electric Bills: No Difficulty Paying for Meds: No Currently Unemployed: No Education: High School Diploma/GED Difficulty w/ Childcare or Family Care: No Additional living arrangements comments: Lives with boyfriend Gender identity (if verbalized by the patient): Female Spiritual care concerns: No Comments At the time of my signature, I reviewed and agree with the nursing past medical, surgical, social, and family history. There is no relevant family history pertinent to the patient complaint. Exam Const: General: cooperative, no acute distress, alert and awake Orientation/consciousness: oriented to person, oriented to place and oriented to time HENMT: Head: normal to inspection Mouth: Yes moist mucous membranes Eyes: Periorbital: periorbital findings normal Eyelids: eyelids normal Conjunctivae: conjunctival abnormality left conjunctival injection and discharge Sclera: scleral abnormality left scleral injection Resp: Effort & Inspection: normal respiratory effort and able to speak in complete sentences Auscultation: clear to auscultation bilaterally, no crackles, no rales, no rhonchi and no wheezes Cardio: Palpation: normal PMI Rate: regular rate Rhythm: regular rhythm Heart sounds: S1 normal heart sound present and S2 normal heart sound present Neuro: General: oriented to person, oriented to place and oriented to time Cranial nerves: Yes CN's II-XII intact bilaterally Psych: Appearance: grossly normal Thought process: Normal thought process present Insight: Good insight present (Psych) Judgement: Good judgement present (Psych) Course Course Level of Care: Express Care Visit Vital Signs Vital signs: Vital Signs Temperature 98.9 F 12/30/24 12:06 Pulse Rate 87 09/16/24 12:06 Respiratory Rate 16 09/16/24 12:06 Blood Pressure 138/90 09/16/24 12:06 Pulse Oximetry 100 09/16/24 12:06 Oxygen Delivery Room Air 09/16/24 12:06 Temperature 98.9 F 09/16/24 12:06 Pulse Rate 87 09/16/24 12:06 Respiratory Rate 16 09/16/24 12:06 Blood Pressure 138/90 09/16/24 12:06 Pulse Oximetry 100 09/16/24 12:06 Oxygen Delivery Room Air 09/16/24 12:06 Reviewed MDM - Eye Problem MDM Narrative Medical decision making narrative: History and exam consistent with bacterial conjunctivitis. Treat as same. Patient nontoxic appearing, stable for discharge home. Discharge instructions reviewed with patient, as well as provided in writing per nursing staff. The instructions also include specific and strict return/GO TO THE ER as well as f/u information. All questions have been answered, and the patient deny any further questions with discharge and discharge plan. Some parts of this dictation were generated by voice recognition software and may contain typographical and/or grammatical inaccuracies. Differential Diagnosis Differential diagnosis: Likely corneal abrasion and conjunctivitis Medical Records Attestation: I reviewed the patient's medical records. Discharge Plan Discharge Clinical Impression: Conjunctivitis Qualifiers: Conjunctivitis type: acute Acute conjunctivitis type: bacterial Laterality: left Qualified Code(s): H10.32 - Unspecified acute conjunctivitis, left eye Patient Disposition: Home, Self-Care Condition: Stable Instructions: Antibiotic Form, Conjunctivitis (ED) Additional Instructions: Use medications as prescribed. Follow with primary care provider. Emergency department for new or worse symptoms. Patient Language: Nepalese Prescriptions: New tobramycin 0.3 % drops 1 drp LEFT EYE Q4H 7 Days Qty: 5 0RF No Action amlodipine 5 mg tablet 5 mg PO DAILY lisinopril 20 mg tablet 20 mg PO DAILY 60 Days Qty: 60 0RF Follow-up/Referrals: Jennifer,MICHAEL Ahn [Primary Care Provider] - Stand Alone Forms: Work/School Release IP Time of Disposition: 12:46
== END 2024-09-16 13:05 | disposition home or self-care (01) ==
PROVIDERS: Emergency Provider Nurse Practitioner Family; PCP Registered Nurse
DX: H10.32 Unspecified acute conjunctivitis, left eye (principal); F17.210 Nicotine dependence, cigarettes, uncomplicated; F12.90 Cannabis use, unspecified, uncomplicated; I10 Essential (primary) hypertension; E66.9 Obesity, unspecified; Z68.30 Body mass index [BMI] 30.0-30.9, adult
CPT/HCPCS: 99213; G0463

== ENCOUNTER 2024-09-27 12:52 | Emergency (ER) | payer SELFPAY ==
[2024-09-27 13:12] VITALS: BP 152/85; PULSE 78; RESP 18; TEMP 36.7; O2SAT 100
--- NOTE | 2024-09-27 13:29 | ED_ITS ---
HPI - General Adult General Chief complaint: Abdominal Pain Stated complaint: abdominal pain Focused HPI: this is a 44-year-old female who presents to the ED for chief complaint of abdominal pain x1 day. Patient reports pain primarily on the left side that radiates inferiorly. States that it is associated with bowel movements. Since her last bowel movement this morning she has not had too much pain. States that she was seen here a few months ago and diagnosed with colitis. She is still needing to get in with GI for a colonoscopy. Denies N/ V/ D, black or bloody stools. Denies fevers, chills, Flank pain or urinary symptoms GENERAL: Well-appearing, well-nourished, and in no acute distress. HEAD: Normocephalic, atraumatic. CHEST: Clear to auscultation. No respiratory distress. HEART: Regular rate and rhythm. ABD: Soft, grossly nontender. No rigidity or guarding. NEURO: Alert and oriented x3. Patient screened in triage and initial orders placed. Additional care and disposition to be based upon diagnostic testing and treatment. Source: patient Mode of arrival: ambulatory Limitations: no limitations Related Data Home Medications ?Medication ?Instructions ?Recorded ?Confirmed ?Last Taken ?Type amlodipine 5 mg tablet 5 mg PO DAILY 05/21/24 06/01/24 Unknown History Allergies Allergy/AdvReac Type Severity Reaction Status Date / Time No Known Allergies Allergy Verified 09/16/24 12:21 [facility] Past Medical History Medical History Essential hypertension Hypertension Obesity Ovarian cyst Vaginal discharge Surgical History Surgical History H/O section x3 H/O: hysterectomy without oophorectomy (hysterectomy performed due to dysfunctional uterine bleeding) History of cholecystectomy History of tubal ligation Family History Family History Father Heart disease Mother CHF (congestive heart failure) COPD (chronic obstructive pulmonary disease) Father Diabetes mellitus Grandparent Lung cancer Ovarian cancer Social History Social History Social History: the patient lives at home with her 3 children ages 15 16 and 17. She has 1 daughter and 2 sons. She lost 1 child at 19 weeks gestation. Two of her 3 children were premature. The patient has smoked 1 pack of cigarettes per day for 24 years. She started smoking at age 16. She drinks 3 or 4 alcoholic beverages 3 times a week. She smokes marijuana every couple of days. Smoking packs per day: 1 Smoking cigarettes per day: 20.0 Years smoked: 24 Smoking pack-years: 24.00 Smoking status: Current every day smoker Tobacco type: cigarettes Second hand tobacco smoke exposure: No Alcohol intake: current Drinks per week: 5 Alcohol use details: social Substance use: current Substance use type: marijuana Do You Feel Safe in your Home?: Yes Lack of Transportation: No Lack of Food: Never True Current Housing: I Have Housing Concerned About Future Housing: No Difficulty Paying Gas/Electric Bills: No Difficulty Paying for Meds: No Currently Unemployed: No Education: High School Diploma/GED Difficulty w/ Childcare or Family Care: No Additional living arrangements comments: Lives with boyfriend Gender identity (if verbalized by the patient): Female Spiritual care concerns: No Course Vital Signs Vital signs: Vital Signs Temperature 98.0 F 09/27/24 13:12 Pulse Rate 78 09/27/24 13:12 Respiratory Rate 18 09/27/24 13:12 Blood Pressure 152/85 H 09/27/24 13:12 Pulse Oximetry 100 09/27/24 13:12 Oxygen Delivery Room Air 09/27/24 13:12 Temperature 98.0 F 09/27/24 13:12 Pulse Rate 78 09/27/24 13:12 Respiratory Rate 18 09/27/24 13:12 Blood Pressure 152/85 H 09/27/24 13:12 Pulse Oximetry 100 09/27/24 13:12 Oxygen Delivery Room Air 09/27/24 13:12 Medical Decision Making Vital Signs Vital Signs: Vital Signs Temperature 98.0 F 09/27/24 13:12 Pulse Rate 78 09/27/24 13:12 Respiratory Rate 18 09/27/24 13:12 Blood Pressure 152/85 H 09/27/24 13:12 Pulse Oximetry 100 09/27/24 13:12 Oxygen Delivery Room Air 09/27/24 13:12 Temperature 98.0 F 09/27/24 13:12 Pulse Rate 78 09/27/24 13:12 Respiratory Rate 18 09/27/24 13:12 Blood Pressure 152/85 H 09/27/24 13:12 Pulse Oximetry 100 09/27/24 13:12 Oxygen Delivery Room Air 09/27/24 13:12 Lab Data 09/27/24 13:36 09/27/24 13:35 Labs: Lab Results 09/27/24 09/27/24 09/27/24 Range/Units 13:35 13:36 14:12 WBC 12.7 H (4.5-10.0) K/mm3 RBC 4.08 L (4.2-5.4) M/mm3 Hgb 13.5 (12.0-15.0) g/dL Hct 40.7 (37.0-47.0) % MCV 99.8 (80-100) fl MCH 33.1 (26-34) pg MCHC 33.2 (32-36) g/dl RDW 13.9 (11.5-14.5) % Plt Count 293 (150-375) k/mm3 MPV 9.4 (7.4-10.4) fl Immature Gran % (Auto) 0.4 (0-0.5) % Neut % (Auto) 71.8 (45.5-73.1) % Lymph % (Auto) 17.4 L (18.3-44.2) % [place] % (Auto) 8.7 H (2.6-8.5) % Eos % (Auto) 1.3 (0-4.4) % Baso % (Auto) 0.4 (0.2-1.2) % Lymph # (Auto) 2.21 (0.9-3.2) K/mm3 [place] # (Auto) 1.1 H (0.1-0.6) K/mm3 Eos # (Auto) 0.2 (0-0.3) K/mm3 Baso # (Auto) 0.1 (0.0-0.1) K/mm3 Abs Immat Gran (auto) 0.05 H (0.00-0.031) K/mm3 Absolute Neuts (auto) 9.1 H (1.3-6.7) K/mm3 Absolute Nucleated RBC 0.000 (0.0-0.012) K/mm3 Nucleated RBC % 0.0 (0.0-0.2) % Sodium 140 (137-145) mmol/L Potassium 3.2 L (3.4-5.0) mmol/L Chloride 104 (98-107) mmol/L Carbon Dioxide 29 (22-30) mmol/L Anion Gap 7 (4-12) mmol/L BUN 7 (7-17) mg/dL Creatinine 0.58 L (0.7-1.0) mg/dL Estim Creat Clear Calc 112 ml/min Estimated GFR > 60 (59 - ) Glucose 112 H (65-110) mg/dL Calcium 8.6 (8.4-10.2) mg/dL Total Bilirubin 0.6 (0.2-1.3) mg/dL AST 20 (14-36) U/L ALT 12 (6-35) U/L Alkaline Phosphatase 50 (38-126) U/L Total Protein 7.0 (6.3-8.2) g/dL Albumin 3.7 (3.5-5.1) g/dL Lipase 87 (23-300) U/L Urine Color Yellow (Yellow) Urine Appearance Cloudy H (Clear) Urine pH 6.0 (5.0-9.0) Ur Specific [place] 1.024 (1.001-1.035) Urine Protein 1+ H (Negative) mg/dL Urine Glucose (UA) Negative (Negative) mg/dL Urine Ketones Trace H (Negative) mg/dL Ur Blood (Man) Trace (Negative) Urine Nitrate Negative (Negative) Urine Bilirubin Negative (Negative) Urine Urobilinogen 1.0 (<2.0) mg/dL Leukocyte Esterase Rfl Negative (Negative) ABEL/UL Urine RBC 6-10 H (0-2) /hpf Urine WBC 0-5 (0-3) /hpf Ur Squamous Epith Cells Moderate (Few) /hpf Urine Bacteria 1+ H /hpf Urine Casts 0-2 POC Urine HCG, Qual (Negative) 09/27/24 Range/Units 14:42 WBC (4.5-10.0) K/mm3 RBC (4.2-5.4) M/mm3 Hgb (12.0-15.0) g/dL Hct (37.0-47.0) % MCV (80-100) fl MCH (26-34) pg MCHC (32-36) g/dl RDW (11.5-14.5) % Plt Count (150-375) k/mm3 MPV (7.4-10.4) fl Immature Gran % (Auto) (0-0.5) % Neut % (Auto) (45.5-73.1) % Lymph % (Auto) (18.3-44.2) % [place] % (Auto) (2.6-8.5) % Eos % (Auto) (0-4.4) % Baso % (Auto) (0.2-1.2) % Lymph # (Auto) (0.9-3.2) K/mm3 [place] # (Auto) (0.1-0.6) K/mm3 Eos # (Auto) (0-0.3) K/mm3 Baso # (Auto) (0.0-0.1) K/mm3 Abs Immat Gran (auto) (0.00-0.031) K/mm3 Absolute Neuts (auto) (1.3-6.7) K/mm3 Absolute Nucleated RBC (0.0-0.012) K/mm3 Nucleated RBC % (0.0-0.2) % Sodium (137-145) mmol/L Potassium (3.4-5.0) mmol/L Chloride (98-107) mmol/L Carbon Dioxide (22-30) mmol/L Anion Gap (4-12) mmol/L BUN (7-17) mg/dL Creatinine (0.7-1.0) mg/dL Estim Creat Clear Calc ml/min Estimated GFR (59 - ) Glucose (65-110) mg/dL Calcium (8.4-10.2) mg/dL Total Bilirubin (0.2-1.3) mg/dL AST (14-36) U/L ALT (6-35) U/L Alkaline Phosphatase (38-126) U/L Total Protein (6.3-8.2) g/dL Albumin (3.5-5.1) g/dL Lipase (23-300) U/L Urine Color (Yellow) Urine Appearance (Clear) Urine pH (5.0-9.0) Ur Specific [place] (1.001-1.035) Urine Protein (Negative) mg/dL Urine Glucose (UA) (Negative) mg/dL Urine Ketones (Negative) mg/dL Ur Blood (Man) (Negative) Urine Nitrate (Negative) Urine Bilirubin (Negative) Urine Urobilinogen (<2.0) mg/dL Leukocyte Esterase Rfl (Negative) ABEL/UL Urine RBC (0-2) /hpf Urine WBC (0-3) /hpf Ur Squamous Epith Cells (Few) /hpf Urine Bacteria /hpf Urine Casts POC Urine HCG, Qual Negative (Negative) Discharge Plan Discharge Clinical Impression: Abdominal pain Qualifiers: Abdominal location: generalized Qualified Code(s): R10.84 - Generalized abdominal pain Patient Disposition: Home, Self-Care Condition: Stable Instructions: Antibiotic Form Patient Language: British Prescriptions: No Action tobramycin 0.3 % drops 1 drp LEFT EYE Q4H 7 Days Qty: 5 0RF amlodipine 5 mg tablet 5 mg PO DAILY lisinopril 20 mg tablet 20 mg PO DAILY 60 Days Qty: 60 0RF Follow-up/Referrals: Camryn,MICHAEL Ahn [Primary Care Provider] -
[2024-09-27 14:04] LABS: Basophils Absolute Auto 0.1 K/mm3 (0.0-0.1); Basophils Percent Auto 0.4 % (0.2-1.2); Eosinophils Absolute Auto 0.2 K/mm3 (0-0.3); Eosinophils Percent Auto 1.3 % (0-4.4); Hematocrit 40.7 % (37.0-47.0); Hemoglobin 13.5 g/dL (12.0-15.0); Immature Granulocyte Absolute 0.05 K/mm3 (0.00-0.031); Immature Granulocyte Percent A 0.4 % (0-0.5); Lymphocytes Absolute Auto 2.21 K/mm3 (0.9-3.2); Lymphocytes Percent Auto 17.4 % (18.3-44.2); Mean Corpuscular HGB Conc 33.2 g/dl (32-36); Mean Corpuscular Hemoglobin 33.1 pg (26-34); Mean Corpuscular Volume 99.8 fl (80-100); Mean Platelet Volume 9.4 fl (7.4-10.4); Monocytes Absolute Auto 1.1 K/mm3 (0.1-0.6); Monocytes Percent Auto 8.7 % (2.6-8.5); Neutrophils Absolute Auto 9.1 K/mm3 (1.3-6.7); Neutrophils Percent Auto 71.8 % (45.5-73.1); Platelet Count Result 293 k/mm3 (150-375); Red Blood Count 4.08 M/mm3 (4.2-5.4); Red Cell Distribution Width 13.9 % (11.5-14.5); White Blood Count 12.7 K/mm3 (4.5-10.0)
[2024-09-27 14:44] LABS: BEDSIDEPREGUCG Negative (Negative)
[2024-09-27 14:51] LABS: Alanine Aminotransferase 12 U/L (6-35); Albumin Level 3.7 g/dL (3.5-5.1); Alkaline Phosphatase 50 U/L (38-126); Anion Gap 7 mmol/L (4-12); Aspartate Amino Transferase 20 U/L (14-36); Bilirubin,Total 0.6 mg/dL (0.2-1.3); Blood Urea Nitrogen 7 mg/dL (7-17); Calcium 8.6 mg/dL (8.4-10.2); Carbon Dioxide 29 mmol/L (22-30); Chloride 104 mmol/L (98-107); Estimated CRCL calculation 112 ml/min; Estimated Glomerular Filt Rate > 60; Glucose 112 mg/dL (65-110); Lipase 87 U/L (23-300); Potassium 3.2 mmol/L (3.4-5.0); Sodium 140 mmol/L (137-145)
[2024-09-27 14:52] LABS: Add Urine Microscopic? YES; Appearance Urine Cloudy (Clear); Bacteria Urine 1+ /hpf; Bilirubin Urine Negative (Negative); Blood Urine Trace (Negative); Color Urine Yellow (Yellow); Glucose Urine UA Negative (Negative); Ketones Urine Trace mg/dL (Negative); Leukocyte Esterase Ur Negative LEU/UL (Negative); Nitrate Urine Negative (Negative); Non Pathogenic Casts 0-2; Protein Urine 1+ mg/dL (Negative); Specific Grav Ur 1.024 (1.001-1.035); Squamous Epithelial Cell Urine Moderate /hpf (Few); WBC Urine 0-5 /hpf (0-3)
--- NOTE | 2024-09-27 17:23 | PC.NURSE ---
1729 Patient asking to have IV removed-plans to go home and call her PMD on Monday. Encouraged to return if worse
== END 2024-09-27 14:00 | disposition home or self-care (01) ==
LOC: ANHED 15:25
PROVIDERS: Emergency Provider Physician Assistant; PCP Registered Nurse
DX: R10.84 Generalized abdominal pain (principal); I10 Essential (primary) hypertension; E66.9 Obesity, unspecified; Z68.30 Body mass index [BMI] 30.0-30.9, adult; F17.210 Nicotine dependence, cigarettes, uncomplicated; Z90.710 Acquired absence of both cervix and uterus; Z90.49 Acquired absence of other specified parts of digestive tract; Z79.899 Other long term (current) drug therapy
CPT/HCPCS: 36415; 80053; 81001; 81025; 83690; 85025; 99283

== ENCOUNTER 2025-07-25 09:03 | Emergency (ER) | payer OTHER, SELFPAY ==
--- NOTE | ~2025-07-25 | XR_ITS ---
EXAMINATION: XR foot RT min 3V DATE: 07/25/2025 09:46 INDICATION: First toe pain TECHNIQUE: 4 images of the right foot were obtained. COMPARISON: None. FINDINGS: [Mild joint space narrowing in the first metatarsophalangeal joint with adjacent soft tissue swelling. Mild plantar and posterior calcaneal spurs. [ No radiographic evidence for an acute fracture or dislocation.] [ No radiopaque foreign body.] [ No sclerotic bone lesions.] IMPRESSION: 1. Mild joint space narrowing in the first metatarsophalangeal joint adjacent soft tissue swelling. If symptoms persist or worsen consider a short-term follow-up study or additional imaging for further assessment. Reviewed, dictated and finalized at location Q. HING AIDE IMPRESSION: 1. Mild joint space narrowing in the first metatarsophalangeal joint adjacent s oft tissue swelling. If symptoms persist or worsen consider a short-term follow-up study or addition al imaging for further assessment.
--- NOTE | 2025-07-25 09:14 | ED_ITS ---
HPI - Extremity Injury (Lower) General Chief Complaint: Extremity Injury, Lower Stated Complaint: Right Foot Pain Time Seen by Provider: 07/25/25 10:00 Source: patient and RN notes reviewed Mode of arrival: ambulatory Limitations: no limitations History of Present Illness HPI Narrative: 45-year-old female Presents Express Care complaining of right foot pain since yesterday. Patient denies any falls or injuries. Patient reports the pain is near 1st metatarsal bone shoots down into her 1st toe. Patient has not taking to help with pain. Patient denies any numbness, tingling or any other injuries. Patient denies significant past medical history. Patient reports a hard time bearing weight due to pain. Related Data Home Medications ?Medication ?Instructions ?Recorded ?Confirmed ?Last Taken ?Type amlodipine 5 mg tablet 5 mg PO DAILY 05/21/2407/25 Unknown History Allergies Allergy/AdvReac Type Severity Reaction Status Date / Time No Known Allergies Allergy Verified 07/25/25 10:08 Review of Systems Review of Systems: CONSTITUTIONAL: Denies fever, chills, or sweats. EYES: Denies visual changes, redness, or discharge. ENT: Denies rhinorrhea, congestion, sore throat, or otalgia. CARDIOVASCULAR: Denies chest pain, palpitations, or edema. RESPIRATORY: Denies cough or dyspnea. GASTROINTESTINAL: Denies abdominal pain, nausea, vomiting, or diarrhea. GENITOURINARY: Denies dysuria or hematuria. SKIN: Denies rash, wound, or itching. MUSCULOSKELETAL: Denies back pain, joint pain, or myalgia. Positive for right foot pain. NEUROLOGIC: Denies headache, numbness, or weakness. PSYCHIATRIC: Denies anxiety or depression. All other systems reviewed are negative, except as documented in HPI. [facility] Past Medical History Medical History Vaginal discharge Essential hypertension Obesity Ovarian cyst Hypertension Surgical History Surgical History History of tubal ligation H/O section x3 H/O: hysterectomy without oophorectomy (hysterectomy performed due to dysfunctional uterine bleeding) History of cholecystectomy Family History Family History Father Heart disease Mother CHF (congestive heart failure) COPD (chronic obstructive pulmonary disease) Father Diabetes mellitus Grandparent Lung cancer Ovarian cancer Social History Social History Social History: the patient lives at home with her 3 children ages 15 16 and 17. She has 1 daughter and 2 sons. She lost 1 child at 19 weeks gestation. Two of her 3 children were premature. The patient has smoked 1 pack of cigarettes per day for 24 years. She started smoking at age 16. She drinks 3 or 4 alcoholic beverages 3 times a week. She smokes marijuana every couple of days. Smoking packs per day: 1 Smoking cigarettes per day: 20.0 Years smoked: 24 Smoking pack-years: 24.00 Tobacco type: cigarettes Second hand tobacco smoke exposure: No Alcohol intake: current Drinks per week: 5 Alcohol use details: social Substance use: current Substance use type: marijuana Do You Feel Safe in your Home?: Yes Lack of Transportation: No Lack of Food: Never True Current Housing: I Have Housing Concerned About Future Housing: No Difficulty Paying Gas/Electric Bills: No Difficulty Paying for Meds: No Currently Unemployed: No Education: High School Diploma/GED Difficulty w/ Childcare or Family Care: No Additional living arrangements comments: Lives with boyfriend Gender identity (if verbalized by the patient): Female Spiritual care concerns: No Comments At the time of my signature, I reviewed and agree with the nursing past medical, surgical, social, and family history. There is no relevant family history pertinent to the patient complaint. Exam Narrative: GENERAL: This is a well-nourished, well-developed adult, in no apparent distress. They are non ill-appearing, nontoxic appearing. HEAD: normocephalic, atraumatic. EYES: Sclera clear/white. Vision is grossly intact. Conjunctiva normal. Extraocular movement intact. EARS: External ears normal Hearing grossly intact. NOSE: External nose normal THROAT: Mucous membranes moist NECK: Neck supple CARDIOVASCULAR: Regular rate and rhythm RESPIRATORY: Respiratory rate normal, respiratory effort nonlabored, no respiratory distress NEURO: awake, alert, and oriented to person, place and time. There were no obvious focal neurologic abnormalities. EXTREMITIES: Right foot: No obvious deformity, injury, swelling, bruising, redness. Is tender throughout the 1st metatarsal and 1st digit. Normal range of motion. Capillary refill less than 3 seconds. Right pedal Pulse 2 +palpable. Normal sensation. Neurovascular status intact distal injury. Patie nt able to wiggle her toes. BACK: Nontender without deformity. Course Course Emergency Course: Portions of this record may have been created with voice recognition software Level of Care: Express Care Visit Vital Signs Vital signs: Vital Signs Temperature 98.0 F 07/25/25 09:24 Pulse Rate 91 07/25/25 09:24 Respiratory Rate 18 07/25/25 09:24 Blood Pressure 121/79 07/25/25 09:24 Pulse Oximetry 99 07/25/25 09:24 Oxygen Delivery Room Air 07/25/25 09:24 Temperature 98.0 F 07/25/25 09:24 Pulse Rate 91 07/25/25 09:24 Respiratory Rate 18 07/25/25 09:24 Blood Pressure 121/79 07/25/25 09:24 Pulse Oximetry 99 07/25/25 09:24 Oxygen Delivery Room Air 07/25/25 09:24 Reviewed MDM - Extremity Injury (Lower) MDM Narrative Medical decision making narrative: X-ray of right foot negative for any fractures or acute findings. It does reveal mild arthritic changes 1st metatarsal. Incidental finding of bone spurs to the calcaneus as well, there is no pain to the plantar sheath area. Given patient's severe pain, will give for a short course of prednisone. Discussed physical exam findings. Advised supportive measures and signs/symptoms to go to the ER. Pt is appropriate for outpt treatment and f/u. Differential Diagnosis Differential diagnosis: Likely other (Toe fracture, toe sprain, foot sprain, foot fracture, ankle sprain, arthritis, gout) Imaging Data Radiologist's impression: ITS Impressions Foot X-Ray 07/25/25 09:48 IMPRESSION: 1. Mild joint space narrowing in the first metatarsophalangeal joint adjacent soft tissue swelling. If symptoms persist or worsen consider a short-term follow-up study or additional imaging for further assessment. Critical Care Time Critical Care Time Critical Care Time: No Discharge Plan Discharge Clinical Impression: Acute pain of right foot Patient Disposition: Home Condition: Stable Instructions: Arthritis (ED) Additional Instructions: The x-ray of your right foot is negative for any fractures or acute findings. There is some mild arthritic changes to the 1st metatarsal bone. Rest and elevate the leg; bear weight as tolerated Apply ice 15-20 minute intervals several times a day You may take ibuprofen 600 mg to 800 mg every 6-8 hours. Do not exceed more than 800 mg of ibuprofen per dose. Do not exceed more than 3200 mg ibuprofen in a day. You may take up to 1000 mg Tylenol every 6-8 hours. Do not exceed 1000 mg per dose, do exceed more than 4000 mg of Tylenol in a day. Take prednisone as directed. Take it with food. Follow up with your primary care provider or surveying or spatial science technician in 1 week if pain is persisting. Patient Language: Salvadorean Prescriptions: New prednisone 20 mg tablet 40 mg PO DAILY 5 Days Qty: 10 0RF No Action amlodipine 5 mg tablet 5 mg PO DAILY lisinopril 20 mg tablet 20 mg PO DAILY 60 Days Qty: 60 0RF Follow-up/Referrals: Brett Johnson DPM [Physician, Podiatry] Camryn,MICHAEL Ahn [Primary Care Provider] Time of Disposition: 10:11
[2025-07-25 09:24] VITALS: BP 121/79; PULSE 91; RESP 18; TEMP 36.7; O2SAT 99
== END 2025-07-25 10:19 | disposition home or self-care (01) ==
PROVIDERS: PCP Registered Nurse
DX: M79.671 Pain in right foot (principal); F17.210 Nicotine dependence, cigarettes, uncomplicated; F12.90 Cannabis use, unspecified, uncomplicated; I10 Essential (primary) hypertension; E66.9 Obesity, unspecified; Z68.27 Body mass index [BMI] 27.0-27.9, adult
CPT/HCPCS: 73630; 99213; G0463

== ENCOUNTER 2025-07-25 13:01 | Emergency (ER) | payer OTHER, SELFPAY ==
[2025-07-25 13:02] VITALS: BP 128/82; PULSE 90; RESP 16; TEMP 37.2; O2SAT 100
--- OUTSIDE RECORDS SUMMARY | 2025-07-25 13:08 | XMS_ITS | Clinical Summary ---
Author Organization [facility] Care Team Providers Care Motion Picture Cameraman Name Role Phone Unavailable Primary Care Provider Unavailabl e Social History Tobacco Use Types Packs/Day Years Used Date Smoking Tobacco: Never Assessed Comments Unknown Sex and Gender Information Value Date Recorded Sex Assigned at Not on file Legal Sex Female 3:38 PM MOUNTER SMOKING PIPE Gender Identity Not on file Sexual Orientation Not on file Plan of Treatment Health Maintenance Due Date Last Done Comments Hepatitis C Virus (HCV) Screening 1981 TdaP Immunization 1981 Pap Smear 2002 Human Papillomavirus (HPV) Immunization (1 - 3-dose SCDM series) 2008 Cervical Cancer Screening (CCS) 2011 HPV/Cotest 2011 Hepatitis B Immunization (2 of 3 - 19+ 3-dose series) 01/24/2019 12/27/2018 Influenza Immunization (#1) 2025 09/25/2018 SARS-COV-2 Immunization ( season) 2025 Respiratory Syncytial Virus (RSV) Immunization (Adult) (1 - 1-dose 75+ series) 2056 DTaP/Tdap/Td Immunization Discontinued 1989, 04/30/1986, 10/20/1982, Additional history exists Meningococcal Immunization (ACWY) Aged Out No longer eligible based on patient's age to complete this topic Pneumococcal Immunization Combined Aged Out No longer eligible based on patient's age to complete this topic Rotavirus Immunization Aged Out No lo nger eligible based on patient's age to complete this topic
--- OUTSIDE RECORDS SUMMARY | 2025-07-25 13:08 | XMS_ITS | Clinical Summary ---
Author Organization [facility] Address [address] [facility] [place] [address] Care Team Providers Care Consulting Manager Name Role Phone Anabelle Cowan LEAD EMBEDDED SOFTWARE ENGINEER-MARKETING GRAPHICS SPECIALIST Primary Care Provider Source Comments [facility],non-owned Affiliates and Associated Physician Practices is amultiple site organization consisting of ambulatory clinics and hospital sitesin [place], [place], [place] and [place]. This disclosure is being madepursuant to the Care Everywhere program and may not contain all information available regarding this patient. Last updated 18.[facility] Allergies No known active allergies Medications * Be aware that medications may not be up to date on this document. Alwaysverify current medications with the patient. 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 Gender Identity Not on file Sexual Orientation Not on file Last Filed Vital Signs Vital Sign Reading Time Taken Comments Blood Pressure 154/95 12/31/2017 6:01 PM CDT Pulse 97 12/31/2017 6:01 PM CDT Temperature 36.4 C (97.6 F) 12/31/2017 6:01 PM CDT Respiratory Rate 18 12/31/2017 6:01 PM CDT Oxygen Saturation 98% 12/31/2017 6:01 PM CDT Inhaled Oxygen Concentration - - Weight 95.3 kg (210 lb) 12/31/2017 6:01 PM CDT Height 165.1 cm (5' 5) 12/31/2017 6:01 PM CDT Body Mass Index 34.95 12/31/2017 6:01 PM CDT Plan of Treatment Health Maintenance Due Date Last Done Comments LIPID TESTING 1981 MAMMOGRAM 1981 HIV SCREENING 1996 HEPATITIS C SCREENING 04/10/1999 DTAP/TDAP/TD VACCINES (1 - Tdap) 2000 HEPATITIS B VACCINE (1 of 3 - 19+ 3-dose series) 2000 PAP SMEAR 2002 HPV VACCINE (1 - 3-dose SCDM series) 2008 DEPRESSION SCREENING 09/18/2024 COVID-19 VACCINE (1 - 2023-2 5 season) 2025 INFLUENZA VACCINE (#1) 2025 ZOSTER VACCINE (1 of 2) 2031 HIB VACCINE Aged Out No longer eligi ble based on patient's age to complete this topic MENINGOCOCCAL (Group B) VACC INE SHARED DECISION-MAKING Aged Out No longer eligibl e based on patient's age to complete this topic MENINGOCOCCAL GROUPS A/C/Y/W VACCINE Aged Out No longer eligible b ased on patient's age to complete this topic PNEUMOCOCCAL VACCINE Aged Out No long er eligible based on patient's age to complete this topic Insurance [facility] Care Teams Consulting Manager Relationship Specialty Start Date End Date Anabelle Cowan, LEAD EMBEDDED SOFTWARE ENGINEER-MARKETING GRAPHICS SPECIALIST [address] [place] [id number] PCP - General 09/22/22
--- OUTSIDE RECORDS SUMMARY | 2025-07-25 18:12 | XMS_ITS | Encounter Summary ---
Author Organization [facility] Address [address] [place] [address] Care Team Providers Care Coating Mixer Tender Name Role Phone Anabelle Cowan Primary Care Provider [phone] Reason for Visit * Reason Comments Foot Pain Encounter Details Date Type Department Care Team (Late st Contact Info) Description 07/25/2025 6:12 PM WELFARE SPECIALIST - 07/25/2025 6:35 PM WELFARE SPECIALIST Emergency [facility] [place] [address] Maeve Ordaz PA [address] [place], [place] [id number] Foot Pain Discharge Disposition: Home or Self Care (Routine Discharge) Social History Tobacco Use Types Packs/Day Years Used Date Smoking Tobacco: Every Day Cigarettes 0.5 31.1 Started: 07/05/1994 Smokeless Tobacco: Never Comments:Patient is trying t o quit Alcohol Use Standard Drinks/Week Comments Yes 0 (1 standard drink = 0.6 oz pur e alcohol) Socially AUDIT-C Answer Date Recorded Frequency of Alcohol Consumption 2-3 times a wee k 08/21/2018 Average Number of Drinks 1 or 2 018 Frequency of Binge Drinking Less than monthly PHQ-2 Answer Date Recorded Patient Health Questionnaire-2 Score 0 11/21/2024 Comments No Sex and Gender Information Value Date Recorded Sex Assigned at Female 11/21/2024 2:15 PM WELFARE SPECIALIST Legal Sex Female 8:31 PM CDT Gender Identity Not on file Sexual Orientation Not on file documented as of this encounter Last Filed Vital Signs Vital Sign Reading Time Taken Comments Blood Pressure 129/74 07/25/2025 4:58 PM WELFARE SPECIALIST Pulse 95 07/25/2025 4:58 PM WELFARE SPECIALIST Temperature 36.8 C (98.2 F) 07/25/2025 4:58 PM WELFARE SPECIALIST Respiratory Rate 16 07/25/2025 4:58 PM WELFARE SPECIALIST Oxygen Saturation 99% 07/25/2025 4:58 PM WELFARE SPECIALIST Inhaled Oxygen Concentration - - Weight 78 kg (172 lb) 07/25/2025 4:58 PM WELFARE SPECIALIST Height 165.1 cm (5' 5) 07/25/2025 4:58 PM WELFARE SPECIALIST Body Mass Index 28.62 07/25/2025 4:58 PM WELFARE SPECIALIST documented in this encounter Functional Status * Calculated C-SSRS Risk Score (Lifetime/Recent) Answer Date of Assessment Author Status No Risk Indicated 07/25/2025 5:16 PM WELFARE SPECIALIST Vikki Echeverria RN Active * [place] Suicide Severity Rating Scale (Screener/Recent Self-Report) Question Answer Date of Assessment Author Status 1. Wish to be (Past 1 Month) No 07/25/2025 5:16 PM WELFARE SPECIALIST Yudi Echeverria RN Act christie 2. Non-Specific Active Suicidal Thoughts (Past 1 Month) No 07/25/2025 5:16 PM WELFARE SPECIALIST Yudi Echeverria RN Act christie 6. Suicidal Behavior (Lifetime) No 07/25/2025 5:16 PM WELFARE SPECIALIST Yudi Echeverria RN Act christie documented as of this encounter Discharge Instructions * Discharge Instructions* BYRON García - 07/25/2025 5:18 PM WELFARE SPECIALIST Take 1 gram of Tylenol 3 times a day and supplement 600 mg ibuprofen in between. The medication youhave been prescribed can make you drowsy. Please take as directed and do not drive, operate heavy machinery, or drink alcohol while taking this medication. Take the prednisone you were prescribed. Apply ice to the affected area. Please follow up with your primary as discussed. Thank you for allowing me to care for you today. I have attached some suggested discharge instructions for you to use to aid in your recovery. Please take any medications prescribed to you as directed. If your symptoms are not improving or are significantly worsening, please return to the ER for further evaluation and treatment. Thank you, Maeve Ordaz PA-C ADDITIONAL DISCHARGE INFORMATION: Emergency rooms (ER) and urgent cares (UC) provide medical screening exams and initial stabilizing treatment of emergency medical conditions. Medicine is an inexact science and many conditions cannotbe diagnosed or completely treated during a single ER visit. Your treating healthcare provider(s) today feel your condition has been stabilized so further evaluation and treatment as an outpatient isreasonable. Emergency care does not substitute for complete, ongoing, or follow-up care by your primary care physician or compensation consultant. Please mention to your follow-up physician that you were in the emergency department and request that they review your labs and/or imaging to ensure all findings are followed up on. ARE SPECIALIST documented in this encounter Medications at Time of Discharge HYDROcodone-acetam inophen (NORCO) 5-325 MG tabletIndications: Acute Pain < 3 Day Supply Take 1 tablet by mouth every 6 (six) hours as needed. Indications: Acute Pain < 3 Day Supply 10 tablet 07/25/2025 amLODIPine (NORVASC) 5 MG tabletIndications: Primary hypertension Take 1 tablet (5 mg total) by mouth daily. 90 tablet 1 12/04/2024 cefdinir (OMNICEF) 300 MG Cap capsuleIndications :Non-recurrent acute serous otitis media of right ear Take 1 capsule (300 mg total) by mouth 2 (two) times daily. 20 capsule 05/28/2025 lisinopril (PRINIVIL) 20 MG tabletIndications: Primary hypertension Take 1 tablet (20 mg total) by mouth daily. 90 tablet 1 12/04/2024 sertraline (ZOLOFT) 50 MG tabletIndications: Anxiety Take one half tablet for 3 days, then increase to one tablet once daily 30 tablet 1 07/05/2024 triamcinolone (KENALOG) 0.1 % creamIndications:P soriasis Apply topically 2 (two) times daily. 80 g 1 09/01/2022 valACYclovir (VALTREX) 500 MG tabletIndications: Cold sore TAKE 1 TABLET(500 MG) BY MOUTH DAILY 90 tablet 12/11/2023 documented as of this encounter ED Notes * Yudi Echeverria RN - 07/25/2025 5:10 PM CST Pt to ED via EMS c/o right big toe pain upon waking up. Pt seen at this morning, did xray, no findings. Sent home with steroids for arthritis. A&Ox4, 06/27 pain ARE SPECIALIST documented in this encounter Plan of Treatment Not on file documented as of this encounter Visit Diagnoses Diagnosis Gout- Primary documented in this encounter Administered Medications Inactive Administered Medications - up to 3 most recent administrations Medication Order MAR Action Action Date Dose Rate Site dexamethasone (DECADRON) injection 6 mg 6 mg, Intramuscular, Once, 1 dose, On Mon07/25/25 at 1715, If giving intravenously, administer slowly over 1-4 minutes. Given 07/25/2025 6:22 PM WELFARE SPECIALIST 6 mg Right Quadriceps HYDROcodone-acetaminophen (NORCO) 5-325 MG tablet 1 tablet 1 tablet, Oral, Once, 1 dose, On Mon07/25/25 at 1715, Maximum dose of acetaminophen is 4000 mg from all sources in 24 hours. Given 07/25/2025 6:21 PM WELFARE SPECIALIST 1 tablet ketorolac (TORADOL) injection 30 mg 30 mg, Intramuscular, Once, 1 dose, On Mon07/25/25 at 1715, For IV administration, give over 15 seconds. Given 07/25/2025 6:26 PM WELFARE SPECIALIST 30 mg Left Quadriceps documented in this encounter Active and Recently Administered Medications Times are shown in WELFARE SPECIALIST. Scheduled Medication Order 07/23/2025 07/24/2025 07/25/2025 dexamethasone (DECADRON) injection 6 mg (COMPLETED) 6 mg, Intramuscular, Once, 1 dose, On Mon07/25/25 at 1715, If giving intravenously, administer slowly over 1-4 minutes. 182 (Given - Provid er: Esther Courtney RN) HYDROcodone-acetaminophen (NORCO) 5-325 MG tablet 1 tablet (COMPLETED) 1 tablet, Oral, Once, 1 dose, On Mon07/25/25 at 1715, Maximum dose of acetaminophen is 4000 mg from all sources in 24 hours. 182 (Given - Provid er: Esther Courtney RN) ketorolac (TORADOL) injection 30 mg (COMPLETED) 30 mg, Intramuscular, Once, 1 dose, On Mon07/25/25 at 1715, For IV administration, give over 15 seconds. 182 (Given - Provid er: Esther Courtney RN) documented in this encounter Care Teams Coating Mixer Tender Relationship Specialty Start Date End Date Anabelle Cowan APNP [address] [place] [id number] PCP - General FAMILY PRACTICE 08/21/18 documented as of this encounter
--- OUTSIDE RECORDS SUMMARY | 2025-07-25 23:00 | XMS_ITS | Encounter Summary ---
Author Organization [facility] Address [address] [place] [address] Care Team Providers Care Chief Revenue Officer Name Role Phone CamrynAnabelle engel Amandeep ROBERTS Primary Care Provider [phone] Encounter Details Date Type Department Care Team (Latest Contact Info) Description 07/25/2025 Travel Social History Tobacco Use Types Packs/Day Years [...] Sex Assigned at Female 11/21/2024 2:15 PM BOAT OFFICER Legal Sex Female 8:31 PM CDT Gender Identity Not on file Sexual Orientation Not on file documented as of this encounter Functional Status * Calculated C-SSRS Risk Score (Lifetime/Recent) Answer Date of Assessment Author Status No Risk Indicated 07/25/2025 5:16 PM Vikki Denton RN Active * [place] Suicide Severity Rating Scale (Screener/Recent Self-Report) Question Answer Date of Assessment Author Status 1. Wish to be (Past 1 Month) No 07/25/2025 5:16 PM Yudi Denton RN Act christie 2. Non-Specific Active Suicidal Thoughts (Past 1 Month) No 07/25/2025 5:16 PM Yudi Denton RN Act christie 6. Suicidal Behavior (Lifetime) No 07/25/2025 5:16 PM Yudi Denton RN Act christie documented as of this encounter Plan of Treatment Not on file documented as of this encounter Visit Diagnoses Not on filedocumented in this encounter Care Teams Chief Revenue Officer Relationship Specialty Start Date End Date Anabelle Cowan APNP [address] [place] [phone] PCP - General FAMILY PRACTICE 08/21/18 documented as of this encounter
--- OUTSIDE RECORDS SUMMARY | 2025-07-25 23:00 | XMS_ITS | Clinical Summary ---
Author Organization [facility] Care Team Providers Care Oracle Analyst Name Role Phone Unavailable Primary Care Provider Unavailabl e Social History Tobacco Use Types Packs/Day Years Used Date Smoking Tobacco: Never Assessed Comments Unknown Sex and Gender Information Value Date Recorded Sex Assigned at Not on file Legal Sex Female 3:38 PM POLITICAL SCIENCE FACULTY MEMBER Gender Identity Not on file Sexual Orientation [...]
--- OUTSIDE RECORDS SUMMARY | 2025-07-25 23:00 | XMS_ITS | Clinical Summary ---
Author Organization [facility] Address [facility] [place] [address] Care Team Providers Care Er Manager Name Role Phone Anabelle Cowan Primary Care Provider [phone]- [phone] Allergies No known active allergies Medications triamcinolone (KENALOG) 0.1 % creamIndications :Psoriasis Apply topically 2 (two) times daily. 80 g 1 2 Active valACYclovir (VALTREX) 500 MG tabletIndication s:Cold sore TAKE 1 TABLET(500 MG) BY MOUTH DAILY 90 tablet 4 Active sertraline (ZOLOFT) 50 MG tabletIndication s:Anxiety Take one half tablet for 3 days, then increase to one tablet once daily 30 tablet 1 4 Active Additional Information Patient not taking.Reported on 05/28/2025 amLODIPine (NORVASC) 5 MG tabletIndication s:Primary hypertension Take 1 tablet (5 mg total) by mouth daily. 90 tablet 1 5 Active lisinopril (PRINIVIL) 20 MG tabletIndication s:Primary hypertension Take 1 tablet (20 mg total) by mouth daily. 90 tablet 1 5 Active cefdinir (OMNICEF) 300 MG Cap capsuleIndicatio ns:Non-recurrent acute serous otitis media of right ear Take 1 capsule (300 mg total) by mouth 2 (two) times daily. 20 capsule 5 Active HYDROcodone-acet aminophen (NORCO) 5-325 MG tabletIndication s:Acute Pain < 3 Day Supply Take 1 tablet by mouth every 6 (six) hours as needed. 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 Hypertension Resolved Problems Problem Noted Date Diagnosed Date Resolved Date Elevated blood pressure read ing with diagnosis of hypertension 04/18/2018 07/05/2024 Paresthesia of right leg 04/18/2018 Screening for heart disease 04/18/2018 05/29/2020 Screening for cholesterol level 04/18/2018 05/29/2020 Screening for diabetes mellitus 04/18/2018 05/29/2020 Encounter for preventive health examination 12/17/2013 05/29/2020 Encounters Date Type Department Care Team Description 07/25/2025 6:12 PM TENDER COORDINATOR - 07/25/2025 6:35 PM TENDER COORDINATOR Emergency [facility] [place] [address] Maeve Ordaz PA Foot Pain Discharge Disposition: Home or Self Care (Routine Discharge) 07/25/2025 Travel 07/14/2025 Telephone [facility] Family [facility] Internal [address] [phone] Anabelle Cowan APNP Advice (Nurse Triage - After Hours ([id number])/) 06/12/2025 Telephone [facility] [address] [phone] Anabelle Cowan APNP Information 05/28/2025 2:40 PM CDT Office Visit [facility] [address] [phone] Rob Somers P, DO Dizziness (Patient c/o ongoing dizziness. Patient states it is worse while laying down or rolling over. Patient has been seen previously for this, had heart monitor and carotid u/s.) 05/28/2025 Travel 05/02/2025 Telephone [facility] [address] [phone] Anabelle Cowan APNP Earache from Last 3 Months Immunizations Immunization Administration Dates Next Due Dtap (Generic) 05/07/1996, 0,04/30/1986,10/20/1982,,1981,1981 Hepatitis A (Generic) 05/07/1996 Hepatitis B (Generic: Adult) 12/27/2018 Influenza Adult (Generic) 09/25/2018 MMR (Generic) 12/09/1991,08/18/1982 Opv 04/30/1986 Polio Ipv (Generic) 10/20/1982,1981,1980,1981 Polio Opv (Generic) 04/30/1986 Tdap (Boostrix) 03/05/2024 Tdap (Generic) 05/07/1996,08/06/1990 Family History Medical History Relation Comments Coronary artery disease Father Diabetes Father Hyperlipidemia Father Hypertension Father CHF Mother COPD Mother Hypertension Mother Cancer Paternal Grandmother lung Hypertension Sister Relation Status Comments Father Mother Paternal Grandmother Sister Social History Tobacco Use Types Packs/Day Years Used Date Smoking Tobacco: Every Day Cigarettes 0.5 31.1 Started: 07/05/1994 Smokeless Tobacco: Never Tobacco Cessation:Ready to Q uit: Yes; Counseling Given: Yes Comments:Patient is trying to quit Alcohol Use Standard Drinks/Week Comments Yes [...] Sex Assigned at Female 11/21/2024 2:15 PM TENDER COORDINATOR Legal Sex Female 8:31 PM CDT Gender Identity Not on file Sexual Orientation Not on file Last Filed Vital Signs Vital Sign Reading Time Taken Comments Blood Pressure 129/74 07/25/2025 4:58 PM TENDER COORDINATOR Pulse 95 07/25/2025 4:58 PM TENDER COORDINATOR Temperature 36.8 C (98.2 F) 07/25/2025 4:58 PM TENDER COORDINATOR Respiratory Rate 16 07/25/2025 4:58 PM TENDER COORDINATOR Oxygen Saturation 99% 07/25/2025 4:58 PM TENDER COORDINATOR Inhaled Oxygen Concentration - - Weight 78 kg (172 lb) 07/25/2025 4:58 PM TENDER COORDINATOR Height 165.1 cm (5' 5) 07/25/2025 4:58 PM TENDER COORDINATOR Body Mass Index 28.62 07/25/2025 4:58 PM TENDER COORDINATOR Plan of Treatment Health Maintenance Due Date Last Done Comments Hepatitis A Vaccines (2 of 2 - 2-dose series) 11/07/1996 05/07/1996 Hepatitis C 1999 Pneumococcal Vaccine: Pediatrics (0 to 5 Years) and At-Risk Patients (6 to 49 Years) (1 of 2 - PCV) 2000 HPV Vaccines (1 - 3-dose SCDM series) 2008 Hepatitis B Vaccines (2 of 3 - 19+ 3-dose series) 01/24/2019 12/27/2018 Mammogram Screening 2021 COVID-19 Vaccine (3 - season) 2025 12/22/2021, 12/01/2021 Influenza Adult (#1) 2025 09/25/2018 Annual Physical 07/05/2025 07/05/2024, 12/19/2018 DTaP, Tdap and Td Vaccines (10 - Td or Tdap) 03/05/2034 03/05/2024, 01/16/2015, 05/07/1996, Additional history exists PHQ-2 (Physician [place]) Completed 11/21/2024 Meningococcal B Vaccine Aged Out No l onger eligible based on patient's age to complete this topic Meningococcal Vaccine Aged Out No mathew kwame eligible based on patient's age to complete this topic RSV Immunizations Under 20 Months Aged Out No longer eligible based on patient's age to complete this topic Insurance [facility] Care Teams Er Manager Relationship Specialty Start Date End Date Anabelle Cowan APNP [address] [place] [phone] PCP - General FAMILY PRACTICE 08/21/18
--- OUTSIDE RECORDS SUMMARY | 2025-07-25 23:00 | XMS_ITS | Encounter Summary ---
Author Organization [facility] Address [address] [place] [address] Care Team Providers Care It Infrastructure Specialist Name Role Phone Anabelle Cowan Primary Care Provider [phone] Encounter Details Date Type Department Care Team (Late st Contact Info) Description 07/09/2024 [employer] Message Enc [facility] Family & Internal Medicine [address] [phone] [place], [facility] Provider lab resutls Social History Tobacco Use Types Packs/Day Years Used Date Smoking Tobacco: Every Day Cigarettes 0.5 31.1 Started: 07/05/1994 Smokeless Tobacco: Never Alcohol Use Standard Drinks/Week Comments Yes 0 (1 standard drink = 0.6 oz pur e alcohol) Socially AUDIT-C Answer Date Recorded Frequency of Alcohol Consumption 2-3 times a wee k 08/21/2018 Average Number of Drinks 1 or 2 018 Frequency of Binge Drinking Less than monthly PHQ-2 Answer Date Recorded Patient Health Questionnaire-2 Score 0 07/05/2024 Comments No Sex and Gender Information Value Date Recorded Sex Assigned at Female 11/21/2024 2:15 PM FLIGHT TEST DATA ACQUISITION TECHNICIAN Legal Sex Female 8:31 PM CDT Gender Identity Not on file Sexual Orientation Not on file documented as of this encounter Plan of Treatment Not on file documented as of this encounter Visit Diagnoses Not on filedocumented in this encounter Care Teams It Infrastructure Specialist Relationship Specialty Start Date End Date Anabelle Cowan APNP [address] [place] [phone] PCP - General FAMILY PRACTICE 08/21/18 documented as of this encounter
--- OUTSIDE RECORDS SUMMARY | 2025-07-25 23:00 | XMS_ITS | Encounter Summary ---
Author Organization [facility] Address [address] [place] [id number] Care Team Providers Care Shoe Turner Name Role Phone Anabelle Cowan Primary Care Provider [phone] Reason for Visit * Reason Onset Date Comments Advice 07/14/2025 Nurse Triage - A fter Hours ([id number]) Encounter Details Date Type Department Care Team (Late st Contact Info) Description 07/14/2025 Telephone [facility] Family & Internal Medicine [facility] [address] [place] [address] Anabelle Cowan APNP [address] [place] [address] Advice (Nurse Triage - After Hours ([id number])/) Social History Tobacco Use Types Packs/Day Years [...] Sex Assigned at Female 11/21/2024 2:15 PM MANAGER OUT[employer]ACH Legal Sex Female 8:31 PM CDT Gender Identity Not on file Sexual Orientation Not on file documented as of this encounter Progress Notes * Louisa Arcos RN - 07/15/2025 7:36 AM CDT Called and spoke with the patient. She said she is feeling better. She had missed a day of her BP medication. Since restarting her BP is back within normal limits. She will call the office back if symptoms return. Opportunity given for all questions to be answered, no further needs voiced at this time. LL-07/15/25 * Hussain Blood - 07/14/2025 7:55 AM CDT Nurse Triage - After Hours ([id number]) Comments Patient Seeking Advice Regarding Heart Palpations and Blood Pressure of 149/104 AssessmentNotes Patient said that she was driving and some pressure in her chest and lasted a few minutes , and felt like everything pushed up in her chest . So she come home and checked her bp and it was 146/109 and she had concerns. She rechecked and it was 130/88. 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 She said she stopped at fire dept and they checked her vitals and checked her out and they said everything looked good with her vitals. No headache , no shortness of breath , no blurred vision or other s/s . She said she never had pain just pressure and feels fine now. Rechecked BP and it was 130/88. I followed CHEST PAIN and HIGH BP guidelines and told patient to monitor and call us back if any s/s , any chest pressure , shortness of breath , palpitations or bp goes back up. Otherwise get some rest and call office in the am AFRN documented in this encounter Plan of Treatment Not on file documented as of this encounter Visit Diagnoses Not on filedocumented in this encounter Care Teams Shoe Turner Relationship Specialty Start Date End Date Anabelle Cowan APNP [address] [place] [id number] PCP - General FAMILY PRACTICE 08/21/18 documented as of this encounter
== END 2025-07-25 15:50 | disposition left against medical advice (07) ==
LOC: ANHED 22:59
PROVIDERS: PCP Registered Nurse
DX: M79.671 Pain in right foot (principal)
CPT/HCPCS: 99199